=== PATIENT | female | born 1965 | race Two or more races ===

== ENCOUNTER 2016-12-30 16:00 | Outpatient (RCR) ==
--- NOTE | 2016-12-15 15:20 | RS.OPPTEV2 ---
Date of Note: 12/14/16 Visit #: 1 Date of Evaluation: 12/14/16 Payer Source: Insurance Treatment Diagnosis: Neck pain, radiating symptoms in UE's. History of Condition/Mechanism of Injury:: Patient reports neck tension for a few years, but onset of UE symptoms approximately three months ago. Prior Level of Function.....Patient was independent with: ADL's, Self Care, Work /Vocation, Caregiving, Ambulation/Mobility, Community Integration/Access Current Subjective/complaints:: Patient reports neck tension, headaches and symptoms into the UE's. States the left hand has tingling in all the fingers except the 5th digit, and tingling down the volar aspect of the left UE. States this is constant and she has similar symptoms in the right UE that are becoming more frequent. She Reports tension in the base of the head and between the neck and shoulders. Reports she has headaches frequently, sometimes they are on a daily basis. She reports no history of migraines. States when she has pain in her UE's it feels like an electrical shock down the arms. 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 States she also had a NCV study that revealed involvement in the cervical spine and wrists. Hx Home Medications: None listed Patient's Goals: Her goal is to get relief of neck and UE's symptoms. Pain Assessment - Pain Description Pain Location: neck Pain Description: Aching Pain Description: tension Current Pain Intensity: 2/10 Worst Pain Intensity: 2/10 Functional Outcome Measure Neck Disability Index: 22 - G Codes & Severity Modifier G Codes & Modifier: NA Source of G Code score: NA Observation - Observation Posture: Forward Head, Rounded Shoulders Handedness: Left - ROM Comments: Cervical AROM and bilateral UE AROM is WFL's. Reports tightness at end range cervical flexion and rotation bilaterally. - Strength Comments: UE strength is 5/5 throughout. - Special Tests VA Test: Negative Thoracic Outlet Test: Negative Left, Negative Right Banquet Supervisor Strength Left Hand Banquet Supervisor Strength: 65 lbs. Right Hand Banquet Supervisor Strength: 64 lbs. Dynamometer Testing Position: 2nd Position Palpation Comments:: Patient demonstrates minimal to moderate increased muscle tone along the upper traps, bilaterally. She denies any signficant tenderness with palpation to the upper traps, cervical paraspinals, or suboccipital region. Sensation - Sensation Comments: Patient reports sensation is intact to light touch and deep pressure, but she does have current tingling in the left UE along the volar aspect of the arm to the 1st-4th digits. - Heat/Cryotherapy Treatment: Hot Pack (X 10 mins to cervical spine prior to traction) - Traction Treatment Method: Mechanical, Intermittent, Cervical Patient Position: Supine Amount of Force Applied: 14-15 lbs. Hold Time: 30sec Rest Time: 5 sec Duration of treatment: 10 mins Interventions - Exercise/Activities/Manual Therapy Exercises/Activities: Patient given two tennis balls to use at home at the base of the head to help relieve headache pain. Also advised to use heat or cold to the base of the head and neck if she is sore later today following traction. Manual Therapy: NA HOME EXERCISE PROGRAM: stretching exercises of heel cord stretching (towel stretch, against the wall, and with hindfoot off a step. Towel curl exercise for Ant. Tib. - Charges Total Direct Minutes: 45 mins Total Treatment Time: 55 mins Procedures billed for this date of service:: Veronica Rosales , mechanical traction Assessment Assessment: Patient presents to therapy with a diagnosis of neck pain and tingling. She reports constant tingling into the left hand and volar aspect of the left UE. Symptoms at times into the right UE as well. Also reports frequent headaches and the feeling of tension in the neck. She exhibits muscle guarding along the upper traps bilaterally, which causes her to report tightness at end range cervical AROM. She demonstrates good potential to benefit from cervical traction to reduce her neck pain, headaches, and radiating symptoms, along with progressed postural stability exercises and postural awareness/auto body worker education to reduce the likelihood of recurrence. Patient Education: Education of diagnosis, Body/Joint mechanics, Home Exercise Program, Home Safety, Activity Modification, Education of Plan of Care Rehab Potential: Good Short Term Goals Goal #1: Left UE symptoms decreased to less than constant. Goal to be met by: 12/28/16 Goal #2: UE symptoms localized to the neck. Goal to be met by: 12/28/16 Goal #3: Headaches decreased to less than once a week. Goal to be met by: 12/28/16 Detention Goals Goal #1: Pt knows HEP and to continue ex's to maintain level of function at D/C. Goal to be met by: 01/23/17 Goal #2: Score on Neck Disability index improved to 6. Goal to be met by: 01/23/17 Goal #3: Pt to perform all ADL's and daily activities w/o neck pain or UE symptoms. Goal to be met by: 01/23/17 Goal #4: Pt to report no headaches. Goal to be met by: 01/23/17 Plan - Treatment to be Provided Procedures: Therapeutic Exercises, Therapeutic Activity, Manual Therapy, Patient Education Modalities: Ultrasound/Phonophoresis, Class IV Laser, Cryotherapy, Hot Packs, Mechanical Traction (cervical) - Treatment Plan Frequency: 2-3 X week Duration: 4 weeks ORDER # VISITS AND/OR THROUGH DATE: 01/23/17 - Treatment Code (1) Neck pain Comments: M54.2 (2) Cervical radiculopathy Comments: M54.12 (3) Frequent headaches Comments: R51
--- NOTE | 2016-12-16 16:56 | RS.OPPTDN ---
Subjective Date of Note: 12/16/16 Visit #: 2 Date of Evaluation: 12/14/16 Payer Source: Insurance Treatment Diagnosis: Neck pain, radiating symptoms in UE's. Current Subjective/complaints:: Patient denies any trouble tim initiation of cervical traction. Pain Assessment - Pain Description Pain Location: neck Pain Description: Aching Pain Description: tension Current Pain Intensity: 2/10 - Heat/Cryotherapy Treatment: Hot Pack (15 mins to the cervical in supine) - Traction Treatment Method: Mechanical, Intermittent, Cervical Patient Position: Supine Amount of Force Applied: 15-16 Hold Time: 25 Rest Time: 5 Duration of treatment: 15 Interventions - Exercise/Activities/Manual Therapy Exercises/Activities: Patient was given HEP concerning TKA and ice for use after surgery. Reviewed cervical HEP. Manual Therapy: NA HOME EXERCISE PROGRAM: stretching exercises of heel cord stretching (towel stretch, against the wall, and with hindfoot off a step. Towel curl exercise for Ant. Tib. - Charges Total Direct Minutes: 5 Total Treatment Time: 30 Procedures billed for this date of service:: hp, mechanical traction Assessment: Patient tim progression of traction well. Will benefit from further advancement. Patient Education: Education of diagnosis, Body/Joint mechanics, Home Exercise Program, Home Safety, Activity Modification, Education of Plan of Care Patient demonstrates compliance with HEP?: Yes Short Term Goals Goal #1: Left UE symptoms decreased to less than constant. Goal to be met by: 12/28/16 Goal #2: UE symptoms localized to the neck. Goal to be met by: 12/28/16 Goal #3: Headaches decreased to less than once a week. Goal to be met by: 12/28/16 Commercial Lines Insurance Agent Goals Goal #1: Pt knows HEP and to continue ex's to maintain level of function at D/C. Goal to be met by: 01/23/17 Goal #2: Score on Neck Disability index improved to 6. Goal to be met by: 01/23/17 Goal #3: Pt to perform all ADL's and daily activities w/o neck pain or UE symptoms. Goal to be met by: 01/23/17 Goal #4: Pt to report no headaches. Goal to be met by: 01/23/17 Plan PLAN OF CARE EXPIRES ON:: 01/23/17 ORDER # VISITS AND/OR THROUGH DATE: 01/23/17 PLAN: Progress Exercises
--- NOTE | 2016-12-19 13:59 | RS.OPPTDN ---
Subjective Date of Note: 12/19/16 Visit #: 3 Date of Evaluation: 12/14/16 Payer Source: Insurance Treatment Diagnosis: Neck pain, radiating symptoms in UE's. Current Subjective/complaints:: Patient states she did fine after treatment on Monday. States she has not noticed many times of having the electrical shock type pain in to her arm. States she will try to pay more attention to her symptoms. Pain Assessment - Pain Description Pain Location: neck Pain Description: Aching Pain Description: tension Current Pain Intensity: 2/10 - Heat/Cryotherapy Treatment: Hot Pack ( X 15 mins prior to traction) - Traction Treatment Method: Mechanical, Intermittent, Cervical Patient Position: Supine Amount of Force Applied: 17-18 lbs Hold Time: 30 seconds Rest Time: 5 seconds Duration of treatment: 20 minutes Interventions - Exercise/Activities/Manual Therapy Exercises/Activities: Patient instructed in scapular retraction and given red and green theraband. Patient demonstrated understanding of exercises. Total minutes of Exercise: 5 mins Manual Therapy: NA HOME EXERCISE PROGRAM: resisted scapular retraction with red and green theraband. - Charges Total Direct Minutes: 5 mins Total Treatment Time: 35 mins Procedures billed for this date of service:: HP, mechanical traction Assessment: Patient noticing less "electrical shock" pain in her arms. States she will pay closer attention to her symptoms. She tolerates the increased pull to 17-18 lbs. today. She will benefit from continued use of cervical traction in a therapeutic range and progressed postural exercises. Patient Education: Education of diagnosis, Body/Joint mechanics, Home Exercise Program, Education of Plan of Care Short Term Goals Goal #1: Left UE symptoms decreased to less than constant. Goal to be met by: 12/28/16 Goal #2: UE symptoms localized to the neck. Goal to be met by: 12/28/16 Goal #3: Headaches decreased to less than once a week. Goal to be met by: 12/28/16 Skilled Nursing Goals Goal #1: Pt knows HEP and to continue ex's to maintain level of function at D/C. Goal to be met by: 01/23/17 Goal #2: Score on Neck Disability index improved to 6. Goal to be met by: 01/23/17 Goal #3: Pt to perform all ADL's and daily activities w/o neck pain or UE symptoms. Goal to be met by: 01/23/17 Goal #4: Pt to report no headaches. Goal to be met by: 01/23/17 Plan PLAN OF CARE EXPIRES ON:: 01/23/17 ORDER # VISITS AND/OR THROUGH DATE: 01/23/17 PLAN: Continue Plan of Care
--- NOTE | 2016-12-21 13:27 | RS.OPPTDN ---
Subjective Date of Note: 12/21/16 Visit #: 4 Date of Evaluation: 12/14/16 Payer Source: Insurance Treatment Diagnosis: Neck pain, radiating symptoms in UE's. Current Subjective/complaints:: Patient reports left UE radicular symptoms have resolved, with exception of finger tips of first 2 fingers that feel numb or asleep, and right UE tingling is not constant. Pain Assessment - Pain Description Pain Location: neck Pain Description: Aching Pain Description: tension Current Pain Intensity: 2/10 - Heat/Cryotherapy Treatment: Hot Pack ([id number] to the cervical spine prior to TX. Patient in supine. ) - Traction Treatment Method: Mechanical, Intermittent, Cervical Patient Position: Supine Amount of Force Applied: 19-20# Hold Time: 35sec Rest Time: 5sec Duration of treatment: 20mins Interventions - Exercise/Activities/Manual Therapy Exercises/Activities: 3mins. Discussed HEP, body mechancis, and posture. Patient will progress to green theraband for scapular retraction. Total minutes of Exercise: 3mins Manual Therapy: NA HOME EXERCISE PROGRAM: resisted scapular retraction with red and green theraband. - Charges Total Direct Minutes: 3mins Total Treatment Time: 43mins Procedures billed for this date of service:: HP, [place] mechanical Assessment: Patient responding well to cervical traction. Patient Education: Education of diagnosis, Body/Joint mechanics, Home Exercise Program Patient demonstrates compliance with HEP?: Yes Short Term Goals Goal #1: Left UE symptoms decreased to less than constant. Goal to be met by: 12/28/16 Progress towards Goal:: Progressing Goal #2: UE symptoms localized to the neck. Goal to be met by: 12/28/16 Progress towards Goal:: Progressing Goal #3: Headaches decreased to less than once a week. Goal to be met by: 12/28/16 Membership Manager Goals Goal #1: Pt knows HEP and to continue ex's to maintain level of function at D/C. Goal to be met by: 01/23/17 Progress towards goal: Progressing Goal #2: Score on Neck Disability index improved to 6. Goal to be met by: 01/23/17 Goal #3: Pt to perform all ADL's and daily activities w/o neck pain or UE symptoms. Goal to be met by: 01/23/17 Goal #4: Pt to report no headaches. Goal to be met by: 01/23/17 Plan PLAN OF CARE EXPIRES ON:: 01/23/17 ORDER # VISITS AND/OR THROUGH DATE: 01/23/17 PLAN: Continue Plan of Care
--- NOTE | 2016-12-27 08:59 | RS.OPPTDN ---
Subjective Date of Note: 12/26/16 Visit #: 6 Date of Evaluation: 12/14/16 Payer Source: Insurance Treatment Diagnosis: Neck pain, radiating symptoms in UE's. Current Subjective/complaints:: Patient says she doesn't remember when she last had symptoms down the L arm. She says she will have tingling down the R "every now and then." Pain Assessment - Pain Description Pain Location: neck Pain Description: Aching Pain Description: tension Current Pain Intensity: 2/10 - Heat/Cryotherapy Treatment: Hot Pack (20 mins cervical in supine) - Traction Treatment Method: Mechanical, Intermittent, Cervical Patient Position: Supine Amount of Force Applied: 22-23 Hold Time: 25 Rest Time: 5 Duration of treatment: 20 Traction Treatment Comment: 1# min and 2 steps Interventions - Exercise/Activities/Manual Therapy Exercises/Activities: Reviewed HEP Manual Therapy: NA HOME EXERCISE PROGRAM: resisted scapular retraction with red and green theraband. - Charges Total Direct Minutes: 0 Total Treatment Time: 40 Procedures billed for this date of service:: hp, mechanical traction Assessment: Patient having less intense and less frequent radicular symptoms to each UE. She is pleased with how well her neck is doing and is more concerned with upcoming TKA Monday, January 02. Patient Education: Education of diagnosis, Body/Joint mechanics, Home Exercise Program, Home Safety, Activity Modification, Education of Plan of Care Patient demonstrates compliance with HEP?: Yes Short Term Goals Goal #1: Left UE symptoms decreased to less than constant. Goal to be met by: 12/28/16 Progress towards Goal:: Progressing Goal #2: UE symptoms localized to the neck. Goal to be met by: 12/28/16 Progress towards Goal:: Progressing Goal #3: Headaches decreased to less than once a week. Goal to be met by: 12/28/16 Progress towards Goal:: Progressing Comments:: Decreased tension TRONCOSO Sinter Feeder Goals Goal #1: Pt knows HEP and to continue ex's to maintain level of function at D/C. Goal to be met by: 01/23/17 Progress towards goal: Progressing Goal #2: Score on Neck Disability index improved to 6. Goal to be met by: 01/23/17 Goal #3: Pt to perform all ADL's and daily activities w/o neck pain or UE symptoms. Goal to be met by: 01/23/17 Goal #4: Pt to report no headaches. Goal to be met by: 01/23/17 Plan PLAN OF CARE EXPIRES ON:: 01/23/17 ORDER # VISITS AND/OR THROUGH DATE: 01/23/17 PLAN: Continue Plan of Care
--- NOTE | 2016-12-28 16:49 | RS.OPPTDN ---
Subjective Date of Note: 12/28/16 Visit #: 7 Date of Evaluation: 12/14/16 Payer Source: Insurance Treatment Diagnosis: Neck pain, radiating symptoms in UE's. Current Subjective/complaints:: Patient says she continues to have only very little tingling to the L 1st and 2nd digits. This is significantly less frequent as well. Pain Assessment - Pain Description Pain Location: neck Pain Description: Aching Pain Description: tension Current Pain Intensity: 2/10 - Heat/Cryotherapy Treatment: Hot Pack (15 mins to the cervical in supine) - Traction Treatment Method: Mechanical, Intermittent, Cervical Patient Position: Supine Amount of Force Applied: 24 Hold Time: 30 Rest Time: 5 Duration of treatment: 20 Traction Treatment Comment: 2 steps Interventions - Exercise/Activities/Manual Therapy Exercises/Activities: Reviewed HEP Manual Therapy: NA HOME EXERCISE PROGRAM: resisted scapular retraction with red and green theraband. - Charges Total Direct Minutes: 0 Total Treatment Time: 35 Procedures billed for this date of service:: hp, traction (mechanical) Assessment: Significant improvement with frequency and intensity of UE radicular symptoms. Patient Education: Education of diagnosis, Body/Joint mechanics, Home Exercise Program, Home Safety, Activity Modification, Education of Plan of Care Patient demonstrates compliance with HEP?: Yes Short Term Goals Goal #1: Left UE symptoms decreased to less than constant. Goal to be met by: 12/28/16 Progress towards Goal:: Progressing Goal #2: UE symptoms localized to the neck. Goal to be met by: 12/28/16 Progress towards Goal:: Progressing Goal #3: Headaches decreased to less than once a week. Goal to be met by: 12/28/16 Progress towards Goal:: Progressing Shelter Goals Goal #1: Pt knows HEP and to continue ex's to maintain level of function at D/C. Goal to be met by: 01/23/17 Progress towards goal: Progressing Goal #2: Score on Neck Disability index improved to 6. Goal to be met by: 01/23/17 Goal #3: Pt to perform all ADL's and daily activities w/o neck pain or UE symptoms. Goal to be met by: 01/23/17 Goal #4: Pt to report no headaches. Goal to be met by: 01/23/17 Plan PLAN OF CARE EXPIRES ON:: 01/23/17 ORDER # VISITS AND/OR THROUGH DATE: 01/23/17 PLAN: Continue Plan of Care
--- NOTE | 2017-01-02 09:09 | RS.OPPTDN ---
Subjective Date of Note: 12/30/16 Visit #: 8 Date of Evaluation: 12/14/16 Payer Source: Insurance Treatment Diagnosis: Neck pain, radiating symptoms in UE's. Current Subjective/complaints:: Patient says she is very pleased with how well her neck and hands have improved. She says she is anxious about her TKR on Monday. She says if her symptoms from her neck stay like it is, she will be satisfied. Pain Assessment - Pain Description Pain Location: neck Pain Description: Aching Pain Description: tension Current Pain Intensity: 0 - Heat/Cryotherapy Treatment: Hot Pack (20 mins cervical supine) - Traction Treatment Method: Mechanical, Intermittent, Cervical Patient Position: Supine Amount of Force Applied: 25 Hold Time: 30 Rest Time: 5 Duration of treatment: 20 Traction Treatment Comment: 2 steps and 1# min Interventions - Exercise/Activities/Manual Therapy Exercises/Activities: Reviewed HEP Manual Therapy: NA HOME EXERCISE PROGRAM: resisted scapular retraction with red and green theraband. - Charges Total Direct Minutes: 5 Total Treatment Time: 45 Procedures billed for this date of service:: hp, mechanical traction Assessment: Patient has progressed well with reduced neck pain, TRONCOSO's frequency, and less radiating symptoms to both hands. This will be her final visit as she is having surgery Monday. Patient Education: Education of diagnosis, Body/Joint mechanics, Home Exercise Program, Home Safety, Activity Modification, Education of Plan of Care Patient demonstrates compliance with HEP?: Yes Short Term Goals Goal #1: Left UE symptoms decreased to less than constant. Goal to be met by: 12/28/16 Progress towards Goal:: Met Goal #2: UE symptoms localized to the neck. Goal to be met by: 12/28/16 Progress towards Goal:: Partially Met Goal #3: Headaches decreased to less than once a week. Goal to be met by: 12/28/16 Progress towards Goal:: Met [facility] Goals Goal #1: Pt knows HEP and to continue ex's to maintain level of function at D/C. Goal to be met by: 01/23/17 Progress towards goal: Met Goal #2: Score on Neck Disability index improved to 6. Goal to be met by: 01/23/17 Progress towards goal: Progressing Goal #3: Pt to perform all ADL's and daily activities w/o neck pain or UE symptoms. Goal to be met by: 01/23/17 Progress towards goal: Progressing Goal #4: Pt to report no headaches. Goal to be met by: 01/23/17 Progress towards goal: Progressing Plan PLAN OF CARE EXPIRES ON:: 01/23/17 ORDER # VISITS AND/OR THROUGH DATE: 01/23/17 PLAN: Plan for Discharge
--- NOTE | 2017-01-02 09:14 | RS.OPPTDN ---
Subjective Date of Note: 12/23/16 Visit #: 5 Date of Evaluation: 12/14/16 Payer Source: Insurance Treatment Diagnosis: Neck pain, radiating symptoms in UE's. Current Subjective/complaints:: Patient says her neck and tingling is getting better with therapy. She says tingling no longer "travels" down the L UE to fingers, but is only present at 1st and 2nd digits. Pain Assessment - Pain Description Pain Location: neck Pain Description: Aching Pain Description: tension Current Pain Intensity: 0 - Heat/Cryotherapy Treatment: Hot Pack (20 mins cervical supine) - Traction Treatment Method: Mechanical, Intermittent, Cervical Patient Position: Supine Amount of Force Applied: 19 Hold Time: 25 Rest Time: 5 Duration of treatment: 20 Traction Treatment Comment: 2 steps 1# relax Interventions - Exercise/Activities/Manual Therapy Exercises/Activities: 3mins. Discussed HEP, body mechancis, and posture. Patient will progress to green theraband for scapular retraction. Manual Therapy: NA HOME EXERCISE PROGRAM: resisted scapular retraction with red and green theraband. - Charges Total Direct Minutes: 3 Total Treatment Time: 43 Procedures billed for this date of service:: hp, mechanical traction Assessment: Patient tim increased poundage and admitting improved symptoms afterwards. Patient Education: Education of diagnosis, Body/Joint mechanics, Home Exercise Program, Home Safety, Activity Modification, Education of Plan of Care Patient demonstrates compliance with HEP?: Yes Short Term Goals Goal #1: Left UE symptoms decreased to less than constant. Goal to be met by: 12/28/16 Progress towards Goal:: Progressing Goal #2: UE symptoms localized to the neck. Goal to be met by: 12/28/16 Progress towards Goal:: Progressing Goal #3: Headaches decreased to less than once a week. Goal to be met by: 12/28/16 Progress towards Goal:: Progressing Shelter Goals Goal #1: Pt knows HEP and to continue ex's to maintain level of function at D/C. Goal to be met by: 01/23/17 Progress towards goal: Progressing Goal #2: Score on Neck Disability index improved to 6. Goal to be met by: 01/23/17 Goal #3: Pt to perform all ADL's and daily activities w/o neck pain or UE symptoms. Goal to be met by: 01/23/17 Progress towards goal: Progressing Goal #4: Pt to report no headaches. Goal to be met by: 01/23/17 Plan PLAN OF CARE EXPIRES ON:: 01/23/17 ORDER # VISITS AND/OR THROUGH DATE: 01/23/17 PLAN: Continue Plan of Care
== END 2017-01-06 ==
PROVIDERS: ATTEND Clinical Nurse Specialist Adult Health
DX: M54.2 Cervicalgia (principal); G89.29 Other chronic pain; R20.2 Paresthesia of skin

== ENCOUNTER → 2017-02-06 | Outpatient (RCR) ==
--- NOTE | 2017-01-20 16:09 | RS.OPPTEV2 ---
Date of Note: 01/20/17 Visit #: 1 Date of Evaluation: 01/20/17 Payer Source: Insurance Surgery Performed?: Yes Procedure Performed: Right TKA Date of Procedure: 01/02/17 Treatment Diagnosis: Right knee pain, right knee effusion, stiffness, s/p TKA History of Condition/Mechanism of Injury:: Patient reports progressive knee pain from arthritis led to TKA. Prior Level of Function.....Patient was independent with: ADL's, Self Care, Work /Vocation, Caregiving, Ambulation/Mobility, Community Integration/Access Functional Limitations: Sleep, Self Care, ADL's, Reaching, Pushing, Pulling, Lifting, Carrying, Sitting, Standing, Bending, Squatting, Ambulation, Community Access/Integration Current Subjective/complaints:: Patient reports right knee pain. States she is taking her pain medication about every 6 hours. She took pain medication this morning. States she started using a cane in the last few days and she feels shaky and wobbly with it. She received Home Health PT for about 2 weeks. Reports she is worried about how much pain she is going to have with therapy. She is consistently icing and elevating the right LE. States the right knee feels tight and swollen. She goes back for a follow up appointment on February 14. She does not know at this time if she will be going back to school when it starts this fall. 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 Treatment Side (optional): Right Medical History Medical History: Hypertension, Arthritis (knees) Smoking Status: Never smoker Hx Home Medications: pain medication q 4-6 hours Patient's Goals: Her goal is to regain functional AROM of the right knee and return to her previous level of function. Pain Assessment - Pain Description Pain Location: Right knee Pain Description: tight and swollen Current Pain Intensity: 3/10 Worst Pain Intensity: 6/10 Functional Outcome Measure LE Functional Scale: 24 (24/80=70% impairment) - G Codes & Severity Modifier G Codes & Modifier: NA Source of G Code score: NA Observation - Observation Inspection: Right knee presents with well healing, clean incision. Incision approximated with Dermabond. Girth Measurement Lower: Right knee: 58 cm superior incision, 46.5 cm inferior incision, 29 cm malleioli Gait - Gait Pattern Gait Comments: Patient ambulates with a WBQC in the left hand into the department. She demonstrates slight unsteadiness and reports feeling wobbly while ambulating. Demonstrates good heel strike, with limited knee and hip flexion during swing phase. - Right Knee ROM Right Knee Extension: -8 degrees from full extension Right Knee Flexion: 73 (degrees AROM) Knee ROM Limitations: Soft Tissue Tightness, Pain Comments: knee extension improved to -6 degrees from full extension after exercises. - Right Knee Strength Right Knee Extension: 4- Good- Right Knee Flexion: 4 Good Sensation - Sensation Right Lower Extremity: Intact/Normal Left Lower Extremity: Intact/Normal Interventions - Exercise/Activities/Manual Therapy Exercises/Activities: Reviewed exercises for HEP. Advised to focus the most on knee flexion and extension. Instructed in AP's, quad sets, SAQ's, heel slides, SLR's, standing HS curls. Also advised to continue to ice and elevate the leg to assist in decreasing swelling. Manual Therapy: NA HOME EXERCISE PROGRAM: TKA protocol- advised to focus on extension and flexion. - Charges Total Direct Minutes: 50 mins Total Treatment Time: 50 mins Procedures billed for this date of service:: GURJIT Cerda Assessment Assessment: Patient presents 2 1/2 weeks s/p right TKA. She presents with limited AROM and strength of the right knee. All ambulation and ADL's are difficult at this time due to swelling, pain, and limited ROM. She demonstrates good potential to regain functional AROM with therapeutic exercises and modalities as indicated. Patient Education: Education of diagnosis, Body/Joint mechanics, Home Exercise Program, Home Safety, Activity Modification, Education of Plan of Care Rehab Potential: Good Short Term Goals Goal #1: Right knee to demonstrate full extension. Goal to be met by: 01/30/17 Goal #2: Right knee active flexion to 95 degrees. Goal to be met by: 02/03/17 Goal #3: Right quad control improved to good. Goal to be met by: 02/03/17 Urban Designer Goals Goal #1: Pt knows HEP and to continue ex's to maintain level of function at D/C. Goal to be met by: 03/06/17 Goal #2: Score on LE functional scale improved to 60/80. Goal to be met by: 03/06/17 Goal #3: Pt to amb. w/o asst device, community distances and min. gait deviation. Goal to be met by: 03/06/17 Goal #4: Right knee AROM WFL's to perform all ADL's without difficulty. Goal to be met by: 03/06/17 Plan - Treatment to be Provided Procedures: Therapeutic Exercises, Therapeutic Activity, Manual Therapy, Patient Education Modalities: Electrical Stimulation, Cryotherapy, Hot Packs - Treatment Plan Frequency: 3 X week Duration: 6 weeks ORDER # VISITS AND/OR THROUGH DATE: 03/06/17 - Treatment Code (1) Knee pain Qualifiers: Chronicity: acute Laterality: right Qualified Description: Acute pain of right knee Qualifier Code(s): (M25.561) Pain in right knee (2) Knee joint effusion Qualifiers: Laterality: right Qualified Description: Effusion of right knee Qualifier Code(s): (M25.461) Effusion, right knee (3) Aftercare following joint replacement surgery Qualifiers: Joint replacement surgery site: knee Laterality: right Qualified Description: Aftercare following right knee joint replacement surgery Qualifier Code(s): (Z47.1) Aftercare following joint replacement surgery, ( Z96.651) Presence of right artificial knee joint
--- NOTE | 2017-01-23 14:36 | RS.OPPTDN ---
Subjective Date of Note: 01/23/17 Visit #: 2 Date of Evaluation: 01/20/17 Payer Source: Insurance Treatment Diagnosis: Right knee pain, right knee effusion, stiffness, s/p TKA Current Subjective/complaints:: Reports the R knee hurts more medially today. Pain Assessment - Pain Description Pain Location: Right knee Pain Description: Dull, Aching Pain Description: tight and swollen Current Pain Intensity: 3 - 4 /10 - Treatment Modality: Electrical Stim Unattended Parameters/Method Applied: 20 mins. high volt to R knee,channel 1 @ 160 pv - 195 pv. Patient Position: Supine - Heat/Cryotherapy Treatment: Cryotherapy (concurrent with e-stim) Interventions - Exercise/Activities/Manual Therapy Exercises/Activities: 30 mins. total of HEP review and return demo. of ankle pumps,QS,SAQ,SLR with assist,heelslides with assist.AROM is 80 - 83 degrees flexion,extension is -8 with SAQ's,-5 with quad sets. Total minutes of Exercise: 30 Manual Therapy: NA Total minutes of Manual Therapy: 0 HOME EXERCISE PROGRAM: TKA protocol- advised to focus on extension and flexion. - Charges Total Direct Minutes: 30 Total Treatment Time: 50 Procedures billed for this date of service:: cp,e-stim,,ex Assessment: Patient reports increased medial knee pain with doing heelslides, but she has soft end feel present with passive stretches.She has moderate edema and warmth present,limiting her flexion. Patient Education: Education of diagnosis, Body/Joint mechanics, Home Exercise Program, Home Safety, Activity Modification, Education of Plan of Care Patient demonstrates compliance with HEP?: Yes Short Term Goals Goal #1: Right knee to demonstrate full extension. Goal to be met by: 01/30/17 Progress towards Goal:: Progressing Goal #2: Right knee active flexion to 95 degrees. Goal to be met by: 02/03/17 Progress towards Goal:: Progressing Goal #3: Right quad control improved to good. Goal to be met by: 02/03/17 Car Customizer Goals Goal #1: Pt knows HEP and to continue ex's to maintain level of function at D/C. Goal to be met by: 03/06/17 Progress towards goal: Progressing Goal #2: Score on LE functional scale improved to 60/80. Goal to be met by: 03/06/17 Goal #3: Pt to amb. w/o asst device, community distances and min. gait deviation. Goal to be met by: 03/06/17 Goal #4: Right knee AROM WFL's to perform all ADL's without difficulty. Goal to be met by: 03/06/17 Plan PLAN OF CARE EXPIRES ON:: 03/06/17 ORDER # VISITS AND/OR THROUGH DATE: 03/06/17 PLAN: Continue Plan of Care
--- NOTE | 2017-01-25 14:38 | RS.OPPTDN ---
Subjective Date of Note: 01/25/17 Visit #: 3 Date of Evaluation: 01/20/17 Payer Source: Insurance Treatment Diagnosis: Right knee pain, right knee effusion, stiffness, s/p TKA Current Subjective/complaints:: Patient reports continued swelling and discomfort at the medial right knee joint. Pain Assessment - Pain Description Pain Location: Right knee Pain Description: Dull, Aching Pain Description: tight and swollen Current Pain Intensity: 3 - 4 /10 - Treatment Modality: Electrical Stim Unattended Parameters/Method Applied: [id number] HVGC to 210p.v. with 4 large pads cross current to the right knee joint with CP prior to EX. Patient Position: Supine - Heat/Cryotherapy Treatment: Cryotherapy ([id number] with Estim prior to EX. ) Interventions - Exercise/Activities/Manual Therapy Exercises/Activities: 30mins. Ankle pumps, QS, Ham sets. SLR with assist. Red theraband for resistive ankle df. Heelslides with assist. Isometric hip add with ball. In sitting, isometric knee flexion and exension. LAQ. Passive right knee flexion, including contract relax technique. Passive right knee flexion to 88 degrees. Total minutes of Exercise: 30mins Manual Therapy: NA HOME EXERCISE PROGRAM: TKA protocol- advised to focus on extension and flexion. Quad sets, Ham sets, SLR, sitting LAQ and active flexion. - Charges Total Direct Minutes: 30mins Total Treatment Time: 50mins Procedures billed for this date of service:: CP, Estim unattended, EX2 Assessment: Patient progressing with ROM and with ability to perform EX. Patient Education: Education of diagnosis, Body/Joint mechanics, Home Exercise Program Patient demonstrates compliance with HEP?: Yes Short Term Goals Goal #1: Right knee to demonstrate full extension. Goal to be met by: 01/30/17 Progress towards Goal:: Progressing Goal #2: Right knee active flexion to 95 degrees. Goal to be met by: 02/03/17 Progress towards Goal:: Progressing Goal #3: Right quad control improved to good. Goal to be met by: 02/03/17 Progress towards Goal:: Progressing Quality Control Manager Goals Goal #1: Pt knows HEP and to continue ex's to maintain level of function at D/C. Goal to be met by: 03/06/17 Progress towards goal: Progressing Goal #2: Score on LE functional scale improved to 60/80. Goal to be met by: 03/06/17 Goal #3: Pt to amb. w/o asst device, community distances and min. gait deviation. Goal to be met by: 03/06/17 Progress towards goal: Progressing Goal #4: Right knee AROM WFL's to perform all ADL's without difficulty. Goal to be met by: 03/06/17 Plan PLAN OF CARE EXPIRES ON:: 03/06/17 ORDER # VISITS AND/OR THROUGH DATE: 03/06/17 PLAN: Continue Plan of Care (Continue modalities and progress exercises to increase strength and ROM.)
--- NOTE | 2017-01-27 15:16 | RS.OPPTDN ---
Subjective Date of Note: 01/27/17 Visit #: 4 Date of Evaluation: 01/20/17 Payer Source: Insurance Treatment Diagnosis: Right knee pain, right knee effusion, stiffness, s/p TKA Current Subjective/complaints:: Patient reports continued swelling and stiffness in the right knee that limits motion and walking. Pain Assessment - Pain Description Pain Location: Right knee Pain Description: Dull, Aching Pain Description: tight and swollen Current Pain Intensity: 3 - 4 /10 - Treatment Modality: Electrical Stim Unattended Parameters/Method Applied: [id number] HVGC to 195p.v. with 4 pads cross current with CP to the right knee prior to EX. Patient Position: Supine - Heat/Cryotherapy Treatment: Cryotherapy ([id number] with Estim ) Interventions - Exercise/Activities/Manual Therapy Exercises/Activities: 30mins. Passive stretching into flexion and extension. Ankle pumps, QS, Ham sets. SLR with assist. Red theraband for resistive ankle df. Heelslides with assist. Isometric hip add with ball. In sitting, isometric knee flexion and exension. LAQ. Passive right knee flexion, including contract relax technique. Passive right knee flexion remains approx 88 degrees. Total minutes of Exercise: 30mins Manual Therapy: NA HOME EXERCISE PROGRAM: TKA protocol- advised to focus on extension and flexion. Quad sets, Ham sets, SLR, sitting LAQ and active flexion. - Charges Total Direct Minutes: 30mins Total Treatment Time: 50mins Procedures billed for this date of service:: CP, Estim unattended, EX2 Assessment: Patient with increased joint swelling today which limits progress with ROM. She is motivated to work on HEP and progress. Patient Education: Body/Joint mechanics, Home Exercise Program, Home Safety Patient demonstrates compliance with HEP?: Yes Short Term Goals Goal #1: Right knee to demonstrate full extension. Goal to be met by: 01/30/17 Progress towards Goal:: Progressing Goal #2: Right knee active flexion to 95 degrees. Goal to be met by: 02/03/17 Progress towards Goal:: No Change Goal #3: Right quad control improved to good. Goal to be met by: 02/03/17 Progress towards Goal:: Progressing Epoxy Specialist Goals Goal #1: Pt knows HEP and to continue ex's to maintain level of function at D/C. Goal to be met by: 03/06/17 Progress towards goal: Progressing Goal #2: Score on LE functional scale improved to 60/80. Goal to be met by: 03/06/17 Goal #3: Pt to amb. w/o asst device, community distances and min. gait deviation. Goal to be met by: 03/06/17 Progress towards goal: Progressing Goal #4: Right knee AROM WFL's to perform all ADL's without difficulty. Goal to be met by: 03/06/17 Plan PLAN OF CARE EXPIRES ON:: 03/06/17 ORDER # VISITS AND/OR THROUGH DATE: 03/06/17 PLAN: Continue Plan of Care
--- NOTE | 2017-01-30 14:39 | RS.OPPTDN ---
Subjective Date of Note: 01/30/17 Visit #: 5 Date of Evaluation: 01/20/17 Payer Source: Insurance Treatment Diagnosis: Right knee pain, right knee effusion, stiffness, s/p TKA Current Subjective/complaints:: Patient reports the R knee appears more swollen today.It does present with moderate edema along the medial aspect. Pain Assessment - Pain Description Pain Location: Right knee Pain Description: Dull, Aching Pain Description: tight and swollen Current Pain Intensity: 3 - 4 /10 - Treatment Modality: Electrical Stim Unattended Parameters/Method Applied: 20 mins. high volt to r knee,channel 1 above the knee 2 200 pv,channel 2 below the knee @ 240 pv. Patient Position: Supine - Heat/Cryotherapy Treatment: Cryotherapy (concurrent with e-stim) Interventions - Exercise/Activities/Manual Therapy Exercises/Activities: 35 mins. total, TKA protocol of ankle pumps,SAQ's,SLR's, assisted heelslides, grade II AP mobs,isometric knee extension /flexion.Flexion assessed in supine ,90/90 position ,and in sitting .Flexion initially @ 79 to 80 degrees,83 to 84 degrees after multiple reps. of passive stretches. Total minutes of Exercise: 35 Manual Therapy: NA Total minutes of Manual Therapy: 0 HOME EXERCISE PROGRAM: TKA protocol- advised to focus on extension and flexion. Quad sets, Ham sets, SLR, sitting LAQ and active flexion. - Charges Total Direct Minutes: 35 Total Treatment Time: 55 Procedures billed for this date of service:: cp,e-stim, ex 2 Assessment: Patient has improved knee extension ,but her flexion remains the same the past couple of sesions.Recommended for her to do flexion in several sets throughout the day,as tolerated.Her end feel is soft,but her pain is elevated significantly with attempting flexion actively or passively. Patient Education: Education of diagnosis, Body/Joint mechanics, Home Exercise Program, Home Safety, Activity Modification, Education of Plan of Care Patient demonstrates compliance with HEP?: Yes (encouraged to focus on flexion exercises) Short Term Goals Goal #1: Right knee to demonstrate full extension. Goal to be met by: 01/30/17 Progress towards Goal:: Progressing Goal #2: Right knee active flexion to 95 degrees. Goal to be met by: 02/03/17 Progress towards Goal:: No Change Goal #3: Right quad control improved to good. Goal to be met by: 02/03/17 Progress towards Goal:: Progressing Intermediate Goals Goal #1: Pt knows HEP and to continue ex's to maintain level of function at D/C. Goal to be met by: 03/06/17 Progress towards goal: Progressing Goal #2: Score on LE functional scale improved to 60/80. Goal to be met by: 03/06/17 Goal #3: Pt to amb. w/o asst device, community distances and min. gait deviation. Goal to be met by: 03/06/17 Progress towards goal: Progressing Goal #4: Right knee AROM WFL's to perform all ADL's without difficulty. Goal to be met by: 03/06/17 Progress towards goal: No Change Plan PLAN OF CARE EXPIRES ON:: 03/06/17 ORDER # VISITS AND/OR THROUGH DATE: 03/06/17 PLAN: Progress Exercises
--- NOTE | 2017-02-01 14:33 | RS.OPPTDN ---
Subjective Date of Note: 02/01/17 Visit #: 6 Date of Evaluation: 01/20/17 Payer Source: Insurance Treatment Diagnosis: Right knee pain, right knee effusion, stiffness, s/p TKA Current Subjective/complaints:: Patient still frustrated about her limited knee flexion.She ia asking about written copies for HEP ,they are printed and given to her today.She continues to have medial pain in the knee. Pain Assessment - Pain Description Pain Location: Right knee Pain Description: Dull, Aching Pain Description: tight and swollen Current Pain Intensity: 5/10 - Heat/Cryotherapy Treatment: Hot Pack (20 mins. to quads prior to manual therapy and exercises) Interventions - Exercise/Activities/Manual Therapy Exercises/Activities: 15 mins. total, TKA protocol of ankle pumps,SAQ's,SLR's, assisted heelslides, grade II AP mobs,isometric knee extension /flexion.Flexion assessed in supine ,90/90 position ,and in sitting .Flexion initially @ 71 , then progressed in sitting to 80 degrees,but elevated pain. Total minutes of Exercise: 15 Manual Therapy: 15 mins. DTM to quads. Total minutes of Manual Therapy: 15 HOME EXERCISE PROGRAM: TKA protocol- advised to focus on extension and flexion. Quad sets, Ham sets, SLR, sitting LAQ and active flexion. - Charges Total Direct Minutes: 30 mins. Total Treatment Time: 50 Procedures billed for this date of service:: hp,manual,ex 1 Assessment: Patient has good strength in quads and hamstrings.but no change in her knee flexion.She continues to have elevated pain medially.VOICEMAIL LEFT at 's office regarding patient 's status. Patient Education: Education of diagnosis, Body/Joint mechanics, Home Exercise Program, Home Safety, Activity Modification, Education of Plan of Care Patient demonstrates compliance with HEP?: Yes Short Term Goals Goal #1: Right knee to demonstrate full extension. Goal to be met by: 01/30/17 Progress towards Goal:: Progressing Goal #2: Right knee active flexion to 95 degrees. Goal to be met by: 02/03/17 Progress towards Goal:: No Change Goal #3: Right quad control improved to good. Goal to be met by: 02/03/17 Progress towards Goal:: Progressing Crew Leader/Control Room Operator Goals Goal #1: Pt knows HEP and to continue ex's to maintain level of function at D/C. Goal to be met by: 03/06/17 Progress towards goal: Progressing Goal #2: Score on LE functional scale improved to 60/80. Goal to be met by: 03/06/17 Goal #3: Pt to amb. w/o asst device, community distances and min. gait deviation. Goal to be met by: 03/06/17 Progress towards goal: No Change Goal #4: Right knee AROM WFL's to perform all ADL's without difficulty. Goal to be met by: 03/06/17 Progress towards goal: No Change Plan PLAN OF CARE EXPIRES ON:: 03/06/17 ORDER # VISITS AND/OR THROUGH DATE: 03/06/17 PLAN: Continue Plan of Care
--- NOTE | 2017-02-03 15:35 | RS.OPPTDN ---
Subjective Date of Note: 02/03/17 Visit #: 7 Date of Evaluation: 01/20/17 Payer Source: Insurance Treatment Diagnosis: Right knee pain, right knee effusion, stiffness, s/p TKA Current Subjective/complaints:: Patient says she is frustrated that her knee is not bending more. She says she is performing HEP several times daily and using ice/walking. Jami continues to say her pain is isolated to just distal to the R medial joint line. Pain Assessment - Pain Description Pain Location: Right knee Pain Description: Dull, Aching Pain Description: tight and swollen Current Pain Intensity: 5/10 - Treatment Modality: Electrical Stim Unattended Parameters/Method Applied: hivolt 4 large pads meredith crossed @ 200-210 pk volts x 12 mins. Originally set for 20, but patient needed to stop due to stomach pains. Patient Position: Supine - Heat/Cryotherapy Treatment: Cryotherapy Interventions - Exercise/Activities/Manual Therapy Exercises/Activities: 26 mins. total, TKA protocol of ankle pumps,SAQ's,SLR's, assisted heelslides, grade II AP mobs,isometric knee extension /flexion. Knee extension stretching over bolster. Patellar mobs. Flexion assessed in supine , 90/90 position ,and in sitting . Contract relax multiple reps. Assisted stretching and LAQ multiple reps for flexion. Manual Therapy: na HOME EXERCISE PROGRAM: TKA protocol- advised to focus on extension and flexion. Quad sets, Ham sets, SLR, sitting LAQ and active flexion. - Charges Total Direct Minutes: 26 Total Treatment Time: 38 Procedures billed for this date of service:: cp, estim (un), ex2 Assessment: Patient continues with pain that elevates severely to the R knee just distal to the medial joint line. Sensation intact to the lateral aspect. Moderate swelling noted throughout the R knee. Patient having a lot of anxiety about status of her knee right now causing stomach issues. Knee flexion to 84 degrees today after multiple reps of stretching and joint mobs in sitting. Patient Education: Education of diagnosis, Body/Joint mechanics, Home Exercise Program, Home Safety, Activity Modification, Education of Plan of Care Patient demonstrates compliance with HEP?: Yes Short Term Goals Goal #1: Right knee to demonstrate full extension. Goal to be met by: 01/30/17 Progress towards Goal:: Progressing Goal #2: Right knee active flexion to 95 degrees. Goal to be met by: 02/03/17 Progress towards Goal:: Progressing Comments:: very slowly and with aggressive stretching/joint mobs Goal #3: Right quad control improved to good. Goal to be met by: 02/03/17 Progress towards Goal:: Progressing Jail Goals Goal #1: Pt knows HEP and to continue ex's to maintain level of function at D/C. Goal to be met by: 03/06/17 Progress towards goal: Progressing Goal #2: Score on LE functional scale improved to 60/80. Goal to be met by: 03/06/17 Goal #3: Pt to amb. w/o asst device, community distances and min. gait deviation. Goal to be met by: 03/06/17 Progress towards goal: No Change Goal #4: Right knee AROM WFL's to perform all ADL's without difficulty. Goal to be met by: 03/06/17 Progress towards goal: No Change Plan PLAN OF CARE EXPIRES ON:: 03/06/17 ORDER # VISITS AND/OR THROUGH DATE: 03/06/17 PLAN: Progress Exercises
--- NOTE | 2017-02-06 14:38 | RS.OPPTDN ---
Subjective Date of Note: 02/06/17 Visit #: 7 Date of Evaluation: 01/20/17 Payer Source: Insurance Treatment Diagnosis: Right knee pain, right knee effusion, stiffness, s/p TKA Current Subjective/complaints:: Patient reports she is discouraged with right medial knee pain that is limiting her ROM. Pain Assessment - Pain Description Pain Location: Right knee Pain Description: Dull, Aching Pain Description: tight and swollen Current Pain Intensity: 5/10 Other Comments regarding Pain:: Sharp pain at medial knee joint with end range flexion. - Treatment Modality: Class 4 Laser Parameters/Method Applied: [id number](no charge) Trial Laser today one cycle of deep pain reduction around right knee joint with focus on medial joint. Then one cycle of edema and congestion through distal quads and popliteal surface of right knee joint. Patient in supine and sitting. Interventions - Exercise/Activities/Manual Therapy Exercises/Activities: 40mins. PROM of the right knee joint. SLR, Quad sets, SAQ. PROM during trial Laser to increase right knee flexion. In sitting, green theraband for resistive knee flexion and extension. Manually resisted isometrics for knee flexion and extension. Contract relax with PROM. Assisted patient to stationary bike for half revolutions and progresses to full revolutions. Total minutes of Exercise: 40mins Manual Therapy: na HOME EXERCISE PROGRAM: TKA protocol- advised to focus on extension and flexion. Quad sets, Ham sets, SLR, sitting LAQ and active flexion. - Objective Findings Observations,measurements,etc.: Passive right knee flexion to 92 degrees in sitting with aggressive stretching. - Charges Total Direct Minutes: 50mins (40mins EX) Total Treatment Time: 50mins Procedures billed for this date of service:: EX3 Assessment: Patient demos progress with ROM today and she is able to progress to full revolutions on bike. Patient Education: Home Exercise Program Patient demonstrates compliance with HEP?: Yes Short Term Goals Goal #1: Right knee to demonstrate full extension. Goal to be met by: 01/30/17 Progress towards Goal:: Progressing Goal #2: Right knee active flexion to 95 degrees. Goal to be met by: 02/03/17 Progress towards Goal:: Progressing Goal #3: Right quad control improved to good. Goal to be met by: 02/03/17 Progress towards Goal:: Progressing Shelter Goals Goal #1: Pt knows HEP and to continue ex's to maintain level of function at D/C. Goal to be met by: 03/06/17 Progress towards goal: Progressing Goal #2: Score on LE functional scale improved to 60/80. Goal to be met by: 03/06/17 Goal #3: Pt to amb. w/o asst device, community distances and min. gait deviation. Goal to be met by: 03/06/17 Progress towards goal: No Change Goal #4: Right knee AROM WFL's to perform all ADL's without difficulty. Goal to be met by: 03/06/17 Progress towards goal: No Change Plan PLAN OF CARE EXPIRES ON:: 03/06/17 ORDER # VISITS AND/OR THROUGH DATE: 03/06/17 PLAN: Continue Plan of Care
== END ==
PROVIDERS: ATTEND Orthopaedic Surgery
DX: M17.11 Unilateral primary osteoarthritis, right knee (principal)

== ENCOUNTER → 2017-03-09 | Outpatient (RCR) ==
--- NOTE | 2017-02-08 15:45 | RS.OPPTDN ---
Subjective Date of Note: 02/08/17 Visit #: 8 Date of Evaluation: 01/20/17 Payer Source: Insurance Treatment Diagnosis: Right knee pain, right knee effusion, stiffness, s/p TKA Current Subjective/complaints:: Patient reports continued pain and stiffness in the right knee. Pain Assessment - Pain Description Pain Location: Right knee Pain Description: tight and swollen Current Pain Intensity: 5/10 - Treatment Parameters/Method Applied: Trial Laser one cycle of Deep Pain Reduction and one cycle of Edema and Congestion to the right knee and distal thigh. Interventions - Exercise/Activities/Manual Therapy Exercises/Activities: 42mins. PROM of the right knee joint. SLR, Quad sets, ham sets, SAQ with 4#. Green theraband for resistive ankle df and ham curl. PROM in sitting. In sitting, green theraband for resistive knee flexion and extension. Manually resisted isometrics for knee flexion and extension. Contract relax with PROM. Assisted patient to stationary bike for half and full revolutions. Total minutes of Exercise: 42mins Manual Therapy: na HOME EXERCISE PROGRAM: TKA protocol- advised to focus on extension and flexion. Quad sets, Ham sets, SLR, sitting LAQ and active flexion. - Charges Total Direct Minutes: 42mins Total Treatment Time: 52mins Procedures billed for this date of service:: EX3 Assessment: Patient able to tolerate increase in resistance with exercise. Patient Education: Home Exercise Program Patient demonstrates compliance with HEP?: Yes Short Term Goals Goal #1: Right knee to demonstrate full extension. Goal to be met by: 01/30/17 Progress towards Goal:: Progressing Goal #2: Right knee active flexion to 95 degrees. Goal to be met by: 02/03/17 Progress towards Goal:: Progressing Goal #3: Right quad control improved to good. 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 Goal to be met by: 03/06/17 Progress towards goal: Progressing Goal #2: Score on LE functional scale improved to 60/80. Goal to be met by: 03/06/17 Goal #3: Pt to amb. w/o asst device, community distances and min. gait deviation. Goal to be met by: 03/06/17 Progress towards goal: No Change Goal #4: Right knee AROM WFL's to perform all ADL's without difficulty. Goal to be met by: 03/06/17 Progress towards goal: No Change Plan PLAN OF CARE EXPIRES ON:: 03/06/17 ORDER # VISITS AND/OR THROUGH DATE: 03/06/17 PLAN: Continue Plan of Care
--- NOTE | 2017-02-10 15:27 | RS.OPPTDN ---
Subjective Date of Note: 02/10/17 Visit #: 9 Date of Evaluation: 01/20/17 Payer Source: Insurance Treatment Diagnosis: Right knee pain, right knee effusion, stiffness, s/p TKA Current Subjective/complaints:: Patient reports continued tightness. States pain at the medial knee joint continues to limit ROM. Pain Assessment - Pain Description Pain Location: Right knee Pain Description: tight and swollen Current Pain Intensity: 5/10 - Heat/Cryotherapy Treatment: Hot Pack ([id number] to the right knee and along hamstrings prior to EX. Patient in supine. ) Interventions - Exercise/Activities/Manual Therapy Exercises/Activities: 40mins. PROM of the right knee joint. SLR, Quad sets, ham sets. SAQ with 3#, 3s/10reps. Green theraband for resistive ankle df and ham curl, 3s/10reps each. Isometric hip add. PROM in sitting. In sitting, green theraband for resistive knee flexion and extension. Manually resisted isometrics for knee flexion and extension. Contract relax with PROM. Assisted patient to stationary bike for full revolutions, x8mins not included in direct time. Total minutes of Exercise: 40mins Manual Therapy: na HOME EXERCISE PROGRAM: TKA protocol- advised to focus on extension and flexion. Quad sets, Ham sets, SLR, sitting LAQ and active flexion. - Charges Total Direct Minutes: 40mins Total Treatment Time: 48mins Procedures billed for this date of service:: 63mins Assessment: Patient able to tolerate PROM better today. Patient Education: Home Exercise Program Patient demonstrates compliance with HEP?: Yes Short Term Goals Goal #1: Right knee to demonstrate full extension. Goal to be met by: 01/30/17 Progress towards Goal:: Progressing Goal #2: Right knee active flexion to 95 degrees. Goal to be met by: 02/03/17 Progress towards Goal:: Progressing Goal #3: Right quad control improved to good. Goal to be met by: 02/03/17 Progress towards Goal:: Progressing Halfway Goals Goal #1: Pt knows HEP and to continue ex's to maintain level of function at D/C. Goal to be met by: 03/06/17 Progress towards goal: Progressing Goal #2: Score on LE functional scale improved to 60/80. Goal to be met by: 03/06/17 Goal #3: Pt to amb. w/o asst device, community distances and min. gait deviation. Goal to be met by: 03/06/17 Progress towards goal: No Change Goal #4: Right knee AROM WFL's to perform all ADL's without difficulty. Goal to be met by: 03/06/17 Progress towards goal: No Change Plan PLAN OF CARE EXPIRES ON:: 03/06/17 ORDER # VISITS AND/OR THROUGH DATE: 03/06/17 PLAN: Continue Plan of Care
--- NOTE | 2017-02-13 14:32 | RS.OPPTDN ---
Subjective Date of Note: 02/13/17 Visit #: 10 Date of Evaluation: 01/20/17 Payer Source: Insurance Treatment Diagnosis: Right knee pain, right knee effusion, stiffness, s/p TKA Current Subjective/complaints:: Patient reports she is discouraged with limited progress with right knee ROM. States sharp nerve pain at the medial knee joint continues to limit her motion. Pain Assessment - Pain Description Pain Location: Right knee Pain Description: tight and swollen Current Pain Intensity: 5/10 - Heat/Cryotherapy Treatment: Hot Pack ([id number] to the right knee joint prior to EX. Patient in supine. ) Interventions - Exercise/Activities/Manual Therapy Exercises/Activities: 40mins. PROM of the right knee joint. SLR, Quad sets, ham sets. SAQ with 3#, 3s/10reps. Green theraband for resistive ankle df and ham curl, 3s/10reps each. Isometric hip add. PROM in sitting. In sitting, green theraband for resistive knee flexion and extension. Manually resisted isometrics for knee flexion and extension. Contract relax with PROM. Patient started with 4mins on stationary bike and ended with 3mins on bike(not included in direct time). Total minutes of Exercise: 40mins Manual Therapy: na HOME EXERCISE PROGRAM: TKA protocol- advised to focus on extension and flexion. Quad sets, Ham sets, SLR, sitting LAQ and active flexion. - Objective Findings Observations,measurements,etc.: Active right knee flexion 87 degrees and passive 94 degrees following exercise session with aggressive stretching. Right knee extension to -6 degrees. - Charges Total Direct Minutes: 40mins Total Treatment Time: 62mins Procedures billed for this date of service:: HP, EX3 Assessment: Patient making slow but steady progress. Pain at medial knee joint continues to limit tolerance with PROM. Patient Education: Home Exercise Program Patient demonstrates compliance with HEP?: Yes Short Term Goals Goal #1: Right knee to demonstrate full extension. Goal to be met by: 03/02/17 Progress towards Goal:: Progressing Goal #2: Right knee active flexion to 95 degrees. Goal to be met by: 03/06/17 Progress towards Goal:: Progressing Goal #3: Right quad control improved to good. Goal to be met by: 03/06/17 Progress towards Goal:: Progressing Assisted Goals Goal #1: Pt knows HEP and to continue ex's to maintain level of function at D/C. Goal to be met by: 03/06/17 Progress towards goal: Progressing Goal #2: Score on LE functional scale improved to 60/80. Goal to be met by: 03/06/17 Goal #3: Pt to amb. w/o asst device, community distances and min. gait deviation. Goal to be met by: 03/06/17 Progress towards goal: No Change Goal #4: Right knee AROM WFL's to perform all ADL's without difficulty. Goal to be met by: 03/06/17 Progress towards goal: No Change Plan PLAN OF CARE EXPIRES ON:: 03/06/17 ORDER # VISITS AND/OR THROUGH DATE: 03/06/17 PLAN: Progress Exercises (Continue and progress ROM and strengthening. STG dates extended to give patient time to meet goals.)
--- NOTE | 2017-02-15 15:31 | RS.OPPTDN ---
Subjective Date of Note: 02/15/17 Visit #: 11 Date of Evaluation: 01/20/17 Payer Source: Insurance Treatment Diagnosis: Right knee pain, right knee effusion, stiffness, s/p TKA Current Subjective/complaints:: Patient reports she is scheduled for a manuipulation next week. She presents orders to attend 5 days per week for 2 weeks following procedure. Pain Assessment - Pain Description Pain Location: Right knee Pain Description: tight and swollen Current Pain Intensity: 5/10 - Heat/Cryotherapy Treatment: Hot Pack ([id number] to the right knee prior to EX. Patient in supine. ) Interventions - Exercise/Activities/Manual Therapy Exercises/Activities: 40mins. PROM of the right knee joint. SLR, Quad sets, ham sets. SAQ with 3#, 3s/10reps. Isometric hip add. PROM in sitting. In sitting, green theraband for resistive knee flexion and extension. Manually resisted isometrics for knee flexion and extension. Contract relax with PROM. 3mins on stationary bike(not in direct time). Biodex for PROM, 3s/5reps of isometrics, and 5reps each of isokinetics at 90, 75, and 60 deg/second. Total minutes of Exercise: 40mins Manual Therapy: na HOME EXERCISE PROGRAM: TKA protocol- advised to focus on extension and flexion. Quad sets, Ham sets, SLR, sitting LAQ and active flexion. - Objective Findings Observations,measurements,etc.: Active right knee flexion to 87 degrees and passive to 94 degrees with aggressive stretching. - Charges Total Direct Minutes: 43mins Total Treatment Time: 57mins Procedures billed for this date of service:: HP, EX3 Assessment: Patient continues to make slow but steady progress. She is scheduled for a right knee joint manipulation next week so treatment will be put on hold at this time. Patient Education: Home Exercise Program Patient demonstrates compliance with HEP?: Yes Short Term Goals Goal #1: Right knee to demonstrate full extension. Goal to be met by: 03/02/17 Progress towards Goal:: Progressing Goal #2: Right knee active flexion to 95 degrees. Goal to be met by: 03/06/17 Progress towards Goal:: Progressing Goal #3: Right quad control improved to good. Goal to be met by: 03/06/17 Progress towards Goal:: Progressing Alf Goals Goal #1: Pt knows HEP and to continue ex's to maintain level of function at D/C. Goal to be met by: 03/06/17 Progress towards goal: Progressing Goal #2: Score on LE functional scale improved to 60/80. Goal to be met by: 03/06/17 Goal #3: Pt to amb. w/o asst device, community distances and min. gait deviation. Goal to be met by: 03/06/17 Progress towards goal: No Change Goal #4: Right knee AROM WFL's to perform all ADL's without difficulty. Goal to be met by: 03/06/17 Progress towards goal: No Change Plan PLAN OF CARE EXPIRES ON:: 03/06/17 ORDER # VISITS AND/OR THROUGH DATE: 03/06/17 PLAN: Hold (Will hold treatment and resume next week following joint manipulation.)
--- NOTE | 2017-02-23 14:29 | RS.PTSUM ---
Progress Note/Summary Date of Note: 02/23/17 Date of Evaluation: 01/20/17 Current Complaints/Gains: Patient just had a manipulation of the right knee yesterday 02/22/17. States the knee feels better than it has in a while. She thinks he injected the knee with "a bunch of stuff". She has been icing the knee and performing ROM exercises to keep it from tightening up. Objective Measurements/Presentation: Active right knee flexion in sitting 90 degrees. Assisted flexion in supine 103 degrees. Extension -15 degrees from full extension. Ambulated in department with quad cane to be cautious. G Codes: NA Source of G Code Score: NA - Short Term Goals Goal #1: Right knee to demonstrate full extension. Goal to be met by: 03/13/17 Progress towards Goal:: Regressing (today, since manipulation yesterday) Goal #2: Right knee active flexion to 110 degrees. Goal to be met by: 03/13/17 Progress towards Goal:: Progressing Goal #3: Right quad control improved to 4+/5. 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 Goal to be met by: 03/30/17 Progress towards goal: Progressing Goal #2: Score on LE functional scale improved to 60/80. Goal to be met by: 03/30/17 Progress towards goal: Progressing Goal #3: Pt to amb. w/o asst device, community distances and min. gait deviation. Goal to be met by: 03/30/17 Goal #4: Right knee AROM WFL's to perform all ADL's without difficulty. Goal to be met by: 03/30/17 - Assessment Assessment of Improvement/Progress: Patient one day s/p right knee manipulation. She demonstrates improved active flexion, but less extension. She demonstrates great potential to regain functional right knee AROM. She is compliant with icing the knee and performing exercises at home. - Plan Plan: Continue Plan of Care Frequency: Daily (X 2 weeks, then 3 times a week for 2 weeks.) PLAN OF CARE EXPIRES ON:: 03/30/17 ORDER # VISITS AND/OR THROUGH DATE: 03/30/17
--- NOTE | 2017-02-23 14:47 | RS.OPPTDN ---
Subjective Date of Note: 02/23/17 Visit #: 12 Date of Evaluation: 01/20/17 Payer Source: Insurance Treatment Diagnosis: Right knee pain, right knee effusion, stiffness, s/p TKA Current Subjective/complaints:: Patient reports having right knee manipulation yesterday. States she has some increasead swelling and has been using ice as instructed. Pain Assessment - Pain Description Pain Location: Right knee Pain Description: tight and swollen Current Pain Intensity: 5/10 - Heat/Cryotherapy Treatment: Cryotherapy ([id number] to the right knee following EX. Patient in supine. ) Interventions - Exercise/Activities/Manual Therapy Exercises/Activities: 40mins. PROM of the right knee joint in supine and sitting. Hamstring stretching. Stationary bike 10mins. Biodex for PROM of the right knee. Ended with additional stretching into flexion and extension with patient supine on high mat table. Quad sets, ham sets. Total minutes of Exercise: 40mins/50mins Manual Therapy: na HOME EXERCISE PROGRAM: TKA protocol- advised to focus on extension and flexion. Quad sets, Ham sets, SLR, sitting LAQ and active flexion. - Charges Total Direct Minutes: 40mins Total Treatment Time: 65mins Procedures billed for this date of service:: EX3, CP Assessment: Patient demos improvement in ROM of the right knee since manipulation yesterday. She will attend daily for 2 weeks with focus on ROM. Patient Education: Home Exercise Program Patient demonstrates compliance with HEP?: Yes Short Term Goals Goal #1: Right knee to demonstrate full extension. Goal to be met by: 03/13/17 Progress towards Goal:: Regressing (today, since manipulation yesterday) Goal #2: Right knee active flexion to 110 degrees. Goal to be met by: 03/13/17 Progress towards Goal:: Progressing Goal #3: Right quad control improved to 4+/5. Goal to be met by: 03/05/17 Progress towards Goal:: Progressing Oil Operator Goals Goal #1: Pt knows HEP and to continue ex's to maintain level of function at D/C. Goal to be met by: 03/30/17 Progress towards goal: Progressing Goal #2: Score on LE functional scale improved to 60/80. Goal to be met by: 03/30/17 Progress towards goal: Progressing Goal #3: Pt to amb. w/o asst device, community distances and min. gait deviation. Goal to be met by: 03/30/17 Goal #4: Right knee AROM WFL's to perform all ADL's without difficulty. Goal to be met by: 03/30/17 Plan PLAN OF CARE EXPIRES ON:: 03/30/17 ORDER # VISITS AND/OR THROUGH DATE: 03/30/17 PLAN: Continue Plan of Care (Continue with ROM exercise.)
--- NOTE | 2017-02-24 15:15 | RS.OPPTDN ---
Subjective Date of Note: 02/24/17 Visit #: 13 Date of Evaluation: 01/20/17 Payer Source: Insurance Treatment Diagnosis: Right knee pain, right knee effusion, stiffness, s/p TKA Current Subjective/complaints:: Patient reports increased joint tightness this morning, but feels like she is doing better this afternoon. She is walking without cane today. Pain Assessment - Pain Description Pain Location: Right knee Pain Description: tight and swollen Current Pain Intensity: 5/10 Interventions - Exercise/Activities/Manual Therapy Exercises/Activities: 55mins. Focus time on PROM of the right knee joint in supine and sitting. Hamstring stretching. Stationary bike 10mins. Biodex for PROM of the right knee. Isometrics on Biodex at angles between 90 degrees and 60 degrees flexion. Ended with additional stretching into flexion and extension with patient supine on high mat table. Quad sets, multiple reps. Total minutes of Exercise: 55mins/65mins Manual Therapy: na HOME EXERCISE PROGRAM: TKA protocol- advised to focus on extension and flexion. Quad sets, Ham sets, SLR, sitting LAQ and active flexion. - Objective Findings Observations,measurements,etc.: Passive right knee flexion to 110 degrees. Active right knee extension to -9 degrees. - Charges Total Direct Minutes: 55mins Total Treatment Time: 65mins Procedures billed for this date of service:: EX4 Assessment: Patient progressing with ROM. Patient Education: Body/Joint mechanics, Home Exercise Program, Home Safety, Activity Modification Patient demonstrates compliance with HEP?: Yes Short Term Goals Goal #1: Right knee to demonstrate full extension. Goal to be met by: 03/13/17 Progress towards Goal:: Progressing (today, since manipulation yesterday) Goal #2: Right knee active flexion to 110 degrees. Goal to be met by: 03/13/17 Progress towards Goal:: Progressing Comments:: Demos passive flexion to 110 degrees Goal #3: Right quad control improved to 4+/5. Goal to be met by: 03/05/17 Progress towards Goal:: Progressing Shelter Goals Goal #1: Pt knows HEP and to continue ex's to maintain level of function at D/C. Goal to be met by: 03/30/17 Progress towards goal: Progressing Goal #2: Score on LE functional scale improved to 60/80. Goal to be met by: 03/30/17 Progress towards goal: Progressing Goal #3: Pt to amb. w/o asst device, community distances and min. gait deviation. Goal to be met by: 03/30/17 Goal #4: Right knee AROM WFL's to perform all ADL's without difficulty. Goal to be met by: 03/30/17 Plan PLAN OF CARE EXPIRES ON:: 03/30/17 ORDER # VISITS AND/OR THROUGH DATE: 03/30/17 PLAN: Continue Plan of Care
--- NOTE | 2017-02-27 11:58 | RS.OPPTDN ---
Subjective Date of Note: 02/27/17 Visit #: 14 Date of Evaluation: 01/20/17 Payer Source: Insurance Treatment Diagnosis: Right knee pain, right knee effusion, stiffness, s/p TKA Current Subjective/complaints:: Patient reports consistently working on HEP over weekend. States right knee continues to be tight, but improving. Pain Assessment - Pain Description Pain Location: Right knee Pain Description: tight and swollen Current Pain Intensity: mild to mod - Heat/Cryotherapy Treatment: Cryotherapy ([id number] to the right knee following exercise. Patient in supine. ) Interventions - Exercise/Activities/Manual Therapy Exercises/Activities: 40mins. Stationary bike 10mins(not included in direct time ). Continued to focus on PROM of the right knee joint in supine and sitting. Hamstring stretching. Biodex for PROM of the right knee. Isometrics on Biodex at angles between 90 degrees and 60 degrees flexion. Began isokinetics on Biodex at 120, 105, and 90 degrees per second settings. Isometric knee flexion and extension in sitting. Ended with additional stretching into flexion and extension with patient supine on high mat table. Total minutes of Exercise: 40mins/50mins Manual Therapy: na HOME EXERCISE PROGRAM: TKA protocol- advised to focus on extension and flexion. Quad sets, Ham sets, SLR, sitting LAQ and active flexion. - Objective Findings Observations,measurements,etc.: Passive right knee flexion to 111 degrees with aggressive stretch. Active right knee extension to -6 degrees at end of exercise session. - Charges Total Direct Minutes: 40mins Total Treatment Time: 65mins Procedures billed for this date of service:: EX3, CP Assessment: Patient progressing ROM and consisitently walking without cane. Patient Education: Body/Joint mechanics, Home Exercise Program, Activity Modification Comments: Advised patient to work on HEP a minimum of 4 times per day, and also passive flexion and extension throughout the day. Patient demonstrates compliance with HEP?: Yes Short Term Goals Goal #1: Right knee to demonstrate full extension. Goal to be met by: 03/13/17 Progress towards Goal:: Progressing Comments:: -6 degrees Goal #2: Right knee active flexion to 110 degrees. Goal to be met by: 03/13/17 Progress towards Goal:: Progressing Comments:: Passive flexion 111 degrees. Goal #3: Right quad control improved to 4+/5. 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 Goal to be met by: 03/30/17 Progress towards goal: Progressing Goal #2: Score on LE functional scale improved to 60/80. Goal to be met by: 03/30/17 Progress towards goal: Progressing Goal #3: Pt to amb. w/o asst device, community distances and min. gait deviation. Goal to be met by: 03/30/17 (100%) Progress towards goal: Met Goal #4: Right knee AROM WFL's to perform all ADL's without difficulty. Goal to be met by: 03/30/17 Progress towards goal: Progressing Plan PLAN OF CARE EXPIRES ON:: 03/30/17 ORDER # VISITS AND/OR THROUGH DATE: 03/30/17 PLAN: Continue Plan of Care
--- NOTE | 2017-02-28 14:31 | RS.OPPTDN ---
Subjective Date of Note: 02/28/17 Visit #: 15 Date of Evaluation: 01/20/17 Payer Source: Insurance Treatment Diagnosis: Right knee pain, right knee effusion, stiffness, s/p TKA Current Subjective/complaints:: No new c/o. States she is working on HEP and ROM seems better again today. Pain Assessment - Pain Description Pain Location: Right knee Pain Description: tight and swollen Current Pain Intensity: mild to mod Interventions - Exercise/Activities/Manual Therapy Exercises/Activities: 40mins. Stationary bike 10mins(not included in direct time ). Continued to focus on PROM of the right knee joint in supine and sitting. Hamstring stretching. SLR, hip abd, and heel slides. Biodex for PROM of the right knee. Isometrics on Biodex at angles between 90 degrees and 60 degrees flexion. Isokinetics on Biodex at 120, 105, and 90 degrees per second settings. Isometric knee flexion and extension in sitting. Ended with additional stretching into flexion and extension with patient supine on high mat table. Total minutes of Exercise: 40mins/50mins Manual Therapy: na HOME EXERCISE PROGRAM: TKA protocol- advised to focus on extension and flexion. Quad sets, Ham sets, SLR, sitting LAQ and active flexion. - Charges Total Direct Minutes: 40mins Total Treatment Time: 50mins Procedures billed for this date of service:: EX3 Assessment: Continue to aggressively stretch right knee into flexion and extension. Short Term Goals Goal #1: Right knee to demonstrate full extension. Goal to be met by: 03/13/17 Progress towards Goal:: Progressing Goal #2: Right knee active flexion to 110 degrees. Goal to be met by: 03/13/17 Progress towards Goal:: Progressing Goal #3: Right quad control improved to 4+/5. Goal to be met by: 03/05/17 Progress towards Goal:: Partially Met Male Impersonator Goals Goal #1: Pt knows HEP and to continue ex's to maintain level of function at D/C. Goal to be met by: 03/30/17 Progress towards goal: Progressing Goal #2: Score on LE functional scale improved to 60/80. Goal to be met by: 03/30/17 Progress towards goal: Progressing Goal #3: Pt to amb. w/o asst device, community distances and min. gait deviation. Goal to be met by: 03/30/17 (100%) Progress towards goal: Met Goal #4: Right knee AROM WFL's to perform all ADL's without difficulty. Goal to be met by: 03/30/17 Progress towards goal: Progressing Plan PLAN OF CARE EXPIRES ON:: 03/30/17 ORDER # VISITS AND/OR THROUGH DATE: 03/30/17 PLAN: Continue Plan of Care (Continue to focus on ROM of right knee as well as progressive strengthening.)
--- NOTE | 2017-03-01 14:44 | RS.OPPTDN ---
Subjective Date of Note: 03/01/17 Visit #: 16 Date of Evaluation: 01/20/17 Payer Source: Insurance Treatment Diagnosis: Right knee pain, right knee effusion, stiffness, s/p TKA Current Subjective/complaints:: Patient reports she feels like there is more swelling in the right knee today. Pain Assessment - Pain Description Pain Location: Right knee Pain Description: tight and swollen Current Pain Intensity: mild to mod Interventions - Exercise/Activities/Manual Therapy Exercises/Activities: 53mins. Stationary bike 5mins(not included in direct time) . Continued to focus on PROM of the right knee joint in supine and sitting. Hamstring stretching. SLR, hip abd, and heel slides. In sitting, LAQ with 5# and green theraband for ham curls, 3s/10reps each. Biodex for PROM of the right knee. Isometrics on Biodex at angles between 90 degrees and 60 degrees flexion, 5sets of 5reps. Isokinetics on Biodex at 120, 105, 90, 75, and 60 degrees per second settings, 5reps of each set. Isometric knee flexion and extension in sitting. Ended with additional stretching into flexion and extension with patient supine on high mat table. Total minutes of Exercise: 53mins/58mins Manual Therapy: na HOME EXERCISE PROGRAM: TKA protocol- advised to focus on extension and flexion. Quad sets, Ham sets, SLR, sitting LAQ and active flexion. - Objective Findings Observations,measurements,etc.: Passive right knee flexion to 112 degrees today. - Charges Total Direct Minutes: 53mins Total Treatment Time: 58mins Procedures billed for this date of service:: EX4 Assessment: Patient continues to demo slow but steaady progress with ROM. Patient Education: Home Exercise Program Patient demonstrates compliance with HEP?: Yes Short Term Goals Goal #1: Right knee to demonstrate full extension. Goal to be met by: 03/13/17 Progress towards Goal:: Progressing Goal #2: Right knee active flexion to 110 degrees. Goal to be met by: 03/13/17 Progress towards Goal:: Progressing Goal #3: Right quad control improved to 4+/5. Goal to be met by: 03/05/17 Progress towards Goal:: Partially Met Director Of Community [employer] Goals Goal #1: Pt knows HEP and to continue ex's to maintain level of function at D/C. Goal to be met by: 03/30/17 Progress towards goal: Progressing Goal #2: Score on LE functional scale improved to 60/80. Goal to be met by: 03/30/17 Progress towards goal: Progressing Goal #3: Pt to amb. w/o asst device, community distances and min. gait deviation. Goal to be met by: 03/30/17 (100%) Progress towards goal: Met Goal #4: Right knee AROM WFL's to perform all ADL's without difficulty. Goal to be met by: 03/30/17 Progress towards goal: Progressing Plan PLAN OF CARE EXPIRES ON:: 03/30/17 ORDER # VISITS AND/OR THROUGH DATE: 03/30/17 PLAN: Continue Plan of Care (Continue and progress strength and ROM to prepare patient for return to work and PLOF.)
--- NOTE | 2017-03-02 14:34 | RS.OPPTDN ---
Subjective Date of Note: 03/02/17 Visit #: 17 Date of Evaluation: 01/20/17 Payer Source: Insurance Treatment Diagnosis: Right knee pain, right knee effusion, stiffness, s/p TKA Current Subjective/complaints:: Patient reports continued tightness, but feels like ROM is progressing. Pain Assessment - Pain Description Pain Location: Right knee Pain Description: tight and swollen Current Pain Intensity: mild to mod Interventions - Exercise/Activities/Manual Therapy Exercises/Activities: 50mins. Stationary bike 5mins(not included in direct time) . Continued to focus on PROM of the right knee joint in supine and sitting. Hamstring stretching. SLR, hip abd, and heel slides. In sitting, LAQ and isometrics. Biodex for PROM of the right knee. Isometrics on Biodex at angles between 90 degrees and 60 degrees flexion, 5sets of 5reps. Isokinetics on Biodex at 120, 105, 90, 75, and 60 degrees per second settings, increased to 7reps of each set. Isometric knee flexion and extension in sitting. Ended with additional stretching into flexion and extension with patient supine on high mat table. Total minutes of Exercise: 50mins Manual Therapy: na HOME EXERCISE PROGRAM: TKA protocol- advised to focus on extension and flexion. Quad sets, Ham sets, SLR, sitting LAQ and active flexion. - Objective Findings Observations,measurements,etc.: Patient demos 110 degrees active flexion. - Charges Total Direct Minutes: 50mins Total Treatment Time: 50mins Procedures billed for this date of service:: EX3 Assessment: Patient making consistent progress with ROM and strengthening. Patient Education: Home Exercise Program Patient demonstrates compliance with HEP?: Yes Short Term Goals Goal #1: Right knee to demonstrate full extension. Goal to be met by: 03/13/17 (90%) Progress towards Goal:: Progressing Goal #2: Right knee active flexion to 110 degrees. Goal to be met by: 03/13/17 (100%) Progress towards Goal:: Met Goal #3: Right quad control improved to 4+/5. Goal to be met by: 03/05/17 (90%) Progress towards Goal:: Partially Met Burnisher And Bumper Goals Goal #1: Pt knows HEP and to continue ex's to maintain level of function at D/C. Goal to be met by: 03/30/17 Progress towards goal: Progressing Goal #2: Score on LE functional scale improved to 60/80. Goal to be met by: 03/30/17 Progress towards goal: Progressing Goal #3: Pt to amb. w/o asst device, community distances and min. gait deviation. Goal to be met by: 03/30/17 (100%) Progress towards goal: Met Goal #4: Right knee AROM WFL's to perform all ADL's without difficulty. Goal to be met by: 03/30/17 Progress towards goal: Progressing Plan PLAN OF CARE EXPIRES ON:: 03/30/17 ORDER # VISITS AND/OR THROUGH DATE: 03/30/17 PLAN: Continue Plan of Care
--- NOTE | 2017-03-03 15:07 | RS.OPPTDN ---
Subjective Date of Note: 03/03/17 Visit #: 18 Date of Evaluation: 01/20/17 Payer Source: Insurance Treatment Diagnosis: Right knee pain, right knee effusion, stiffness, s/p TKA Current Subjective/complaints:: Patient reports tightness again today. Pain Assessment - Pain Description Pain Location: Right knee Pain Description: tight and swollen Current Pain Intensity: mild to mod Interventions - Exercise/Activities/Manual Therapy Exercises/Activities: 45mins. Stationary bike 5mins(not included in direct time) . Continued to focus on PROM of the right knee joint in supine and sitting. Hamstring stretching. SLR, hip abd, and heel slides. 4# for SAQ. Green theraband for ham curl, ankle df, and hip abd and add in hook-lying. In sitting , LAQ and green theraband for ham curl. Biodex for PROM of the right knee. Isometrics on Biodex at angles between 90 degrees and 60 degrees flexion, 5sets of 5reps. Isokinetics on Biodex at 120, 105, 90, 75, and 60 degrees per second settings, 5reps of each set. Isometric knee flexion and extension in sitting. Ended with additional stretching into flexion and extension with patient supine on high mat table. Total minutes of Exercise: 45mins/50mins Manual Therapy: na HOME EXERCISE PROGRAM: TKA protocol- advised to focus on extension and flexion. Quad sets, Ham sets, SLR, sitting LAQ and active flexion. - Objective Findings Observations,measurements,etc.: Passive right knee flexion remains between 110 and 112 degrees with aggressive stretching. Active right knee extension to -5 degrees following exercises. - Charges Total Direct Minutes: 45mins Total Treatment Time: 50mins Procedures billed for this date of service:: EX3 Assessment: Patient continues to have difficulty with swelling and ROM is progressing very slowly. Patient Education: Home Exercise Program Patient demonstrates compliance with HEP?: Yes Short Term Goals Goal #1: Right knee to demonstrate full extension. Goal to be met by: 03/13/17 (90%) Progress towards Goal:: Progressing Goal #2: Right knee active flexion to 110 degrees. Goal to be met by: 03/13/17 Progress towards Goal:: Regressing Comments:: less than 110 degrees today Goal #3: Right quad control improved to 4+/5. Goal to be met by: 03/05/17 (90%) Progress towards Goal:: Partially Met Manager Building Goals Goal #1: Pt knows HEP and to continue ex's to maintain level of function at D/C. Goal to be met by: 03/30/17 Progress towards goal: Progressing Goal #2: Score on LE functional scale improved to 60/80. Goal to be met by: 03/30/17 Progress towards goal: Progressing Goal #3: Pt to amb. w/o asst device, community distances and min. gait deviation. Goal to be met by: 03/30/17 (100%) Progress towards goal: Met Goal #4: Right knee AROM WFL's to perform all ADL's without difficulty. Goal to be met by: 03/30/17 Progress towards goal: Progressing Plan PLAN OF CARE EXPIRES ON:: 03/30/17 ORDER # VISITS AND/OR THROUGH DATE: 03/30/17 PLAN: Continue Plan of Care (Continue progressing ROM of the right knee.)
--- NOTE | 2017-03-06 14:06 | RS.OPPTDN ---
Subjective Date of Note: 03/06/17 Visit #: 19 Date of Evaluation: 01/20/17 Payer Source: Insurance Treatment Diagnosis: Right knee pain, right knee effusion, stiffness, s/p TKA Current Subjective/complaints:: Patient reports doing her exercises as much as possible,continues to be motivated. Pain Assessment - Pain Description Pain Location: Right knee Pain Description: tight and swollen Current Pain Intensity: mild to mod Interventions - Exercise/Activities/Manual Therapy Exercises/Activities: 55mins. Stationary bike 10 mins(not included in direct time). Continued to focus on PROM of the right knee joint in supine and sitting. Multiple reps. of hamstring stretches, heelslides,contract-relax to quads.Grade III AP joint mobs. to R knee.Aggressive passive stretches after contract-relax to quads with 121 to 123 degrees,active flexion to 112 x 3.Ended session on BIODEX passive setting x 5 mins. from 90 degrees flexed to - 5 degrees extension. Total minutes of Exercise: 55 Manual Therapy: na Total minutes of Manual Therapy: 0 HOME EXERCISE PROGRAM: TKA protocol- advised to focus on extension and flexion. Quad sets, Ham sets, SLR, sitting LAQ and active flexion. - Charges Total Direct Minutes: 45 Total Treatment Time: 55 Procedures billed for this date of service:: ex 3 Assessment: Patient has increased flexion today ,with continued soft end feel present .She has full extension passively on bolster today.She continues to be motivated to improve.Her gait pattern is minimally antalgic upon entering clinic today,and less after treatment. Patient Education: Education of diagnosis, Body/Joint mechanics, Home Exercise Program, Home Safety, Activity Modification, Education of Plan of Care Patient demonstrates compliance with HEP?: Yes Short Term Goals Goal #1: Right knee to demonstrate full extension. Goal to be met by: 03/13/17 (90%) Progress towards Goal:: Progressing Goal #2: Right knee active flexion to 110 degrees. Goal to be met by: 03/13/17 Progress towards Goal:: Progressing Goal #3: Right quad control improved to 4+/5. Goal to be met by: 03/05/17 (90%) Progress towards Goal:: Partially Met Care Home Goals Goal #1: Pt knows HEP and to continue ex's to maintain level of function at D/C. Goal to be met by: 03/30/17 Progress towards goal: Progressing Goal #2: Score on LE functional scale improved to 60/80. Goal to be met by: 03/30/17 Progress towards goal: Progressing Goal #3: Pt to amb. w/o asst device, community distances and min. gait deviation. Goal to be met by: 03/30/17 (100%) Progress towards goal: Met Goal #4: Right knee AROM WFL's to perform all ADL's without difficulty. Goal to be met by: 03/30/17 Progress towards goal: Progressing Plan PLAN OF CARE EXPIRES ON:: 03/30/17 ORDER # VISITS AND/OR THROUGH DATE: 03/30/17 PLAN: Progress Exercises
--- NOTE | 2017-03-07 14:21 | RS.OPPTDN ---
Subjective Date of Note: 03/07/17 Visit #: 20 Date of Evaluation: 01/20/17 Payer Source: Insurance Treatment Diagnosis: Right knee pain, right knee effusion, stiffness, s/p TKA Current Subjective/complaints:: Patient reports muscle soreness right quads. Reports she will see physician on and hopes to be able to return to work. Pain Assessment - Pain Description Pain Location: Right knee Pain Description: tight and swollen Current Pain Intensity: mild to mod Interventions - Exercise/Activities/Manual Therapy Exercises/Activities: Stationary bike 3 mins(not included in direct time). Focus on PROM of the right knee joint in supine and sitting. Multiple reps of hamstring stretches, heelslides, contract-relax to quads. Aggressive passive stretches after contract-relax to quads with flexion to 118 degrees, and active flexion to 108 degrees. BIODEX passive setting x 5 mins. Isometrics 6 sets of 5 reps in ranges of 60 to 90 degrees flexion. Isokinetics at 150, 120, 90, 60, and 45 deg/sec settings, 7 reps each set. Total minutes of Exercise: 50mins/53mins Manual Therapy: na HOME EXERCISE PROGRAM: TKA protocol- advised to focus on extension and flexion. Quad sets, Ham sets, SLR, sitting LAQ and active flexion. - Charges Total Direct Minutes: 50mins Total Treatment Time: 53mins Procedures billed for this date of service:: EX3 Assessment: Patient continues to demo improvement in AROM and PROM. Patient Education: Home Exercise Program Patient demonstrates compliance with HEP?: Yes Short Term Goals Goal #1: Right knee to demonstrate full extension. Goal to be met by: 03/13/17 (90%) Progress towards Goal:: Progressing Goal #2: Right knee active flexion to 110 degrees. Goal to be met by: 03/13/17 Progress towards Goal:: Progressing Goal #3: Right quad control improved to 4+/5. Goal to be met by: 03/05/17 (90%) Progress towards Goal:: Partially Met Long-Term Goals Goal #1: Pt knows HEP and to continue ex's to maintain level of function at D/C. Goal to be met by: 03/30/17 Progress towards goal: Progressing Goal #2: Score on LE functional scale improved to 60/80. Goal to be met by: 03/30/17 Progress towards goal: Progressing Goal #3: Pt to amb. w/o asst device, community distances and min. gait deviation. Goal to be met by: 03/30/17 (100%) Progress towards goal: Met Goal #4: Right knee AROM WFL's to perform all ADL's without difficulty. Goal to be met by: 03/30/17 Progress towards goal: Progressing Plan PLAN OF CARE EXPIRES ON:: 03/30/17 ORDER # VISITS AND/OR THROUGH DATE: 03/30/17 PLAN: Progress Exercises
--- NOTE | 2017-03-08 16:14 | RS.OPPTDN ---
Subjective Date of Note: 03/08/17 Visit #: 21 Date of Evaluation: 01/20/17 Payer Source: Insurance Treatment Diagnosis: Right knee pain, right knee effusion, stiffness, s/p TKA Current Subjective/complaints:: Patient states she has seen improvement in strength and ROM of the right knee, but feels swelling continues to limit progress. Pain Assessment - Pain Description Pain Location: Right knee Pain Description: tight and swollen Current Pain Intensity: mild to mod Interventions - Exercise/Activities/Manual Therapy Exercises/Activities: Stationary bike 8 mins(not included in direct time). Focus on PROM of the right knee joint in supine and sitting on elevated Biodex chair. Multiple reps of hamstring stretches, heelslides, contract-relax to quads. Aggressive passive stretches after contract-relax to quads with flexion to 120 degrees, and active flexion to 114 degrees. Active right knee extension to -3 degrees following aggressive stretching. Witheld Isometric and Isokinetic rehab on Biodex today to focus on ROM. Total minutes of Exercise: 40mins/48mins Manual Therapy: na HOME EXERCISE PROGRAM: TKA protocol- advised to focus on extension and flexion. Quad sets, Ham sets, SLR, sitting LAQ and active flexion. - Objective Findings Observations,measurements,etc.: Passive right knee flexion 120 degrees, and active flexion to 114 degrees. Active right knee extension to -3 degrees following aggressive stretching. - Charges Total Direct Minutes: 40mins Total Treatment Time: 48mins Procedures billed for this date of service:: EX3 Assessment: Patient has made good progress with ROM. She is independent with basic HEP. Patient Education: Home Exercise Program, Home Safety Patient demonstrates compliance with HEP?: Yes Short Term Goals Goal #1: Right knee to demonstrate full extension. Goal to be met by: 03/13/17 (90%) Progress towards Goal:: Progressing Goal #2: Right knee active flexion to 110 degrees. Goal to be met by: 03/13/17 Progress towards Goal:: Met Goal #3: Right quad control improved to 4+/5. Goal to be met by: 03/05/17 (100%) Progress towards Goal:: Met Watch Assembly Inspector Goals Goal #1: Pt knows HEP and to continue ex's to maintain level of function at D/C. Goal to be met by: 03/30/17 Progress towards goal: Progressing Goal #2: Score on LE functional scale improved to 60/80. Goal to be met by: 03/30/17 Progress towards goal: Progressing Goal #3: Pt to amb. w/o asst device, community distances and min. gait deviation. Goal to be met by: 03/30/17 (100%) Progress towards goal: Met Goal #4: Right knee AROM WFL's to perform all ADL's without difficulty. Goal to be met by: 03/30/17 Progress towards goal: Met Plan PLAN OF CARE EXPIRES ON:: 03/30/17 ORDER # VISITS AND/OR THROUGH DATE: 03/30/17 PLAN: Return to physician (Patient will return for a follow-up at physicians office tomorrow. She may continue therapy as needed with additional orders.)
== END ==
PROVIDERS: ATTEND Orthopaedic Surgery
DX: M25.561 Pain in right knee (principal)

== ENCOUNTER 2017-03-24 15:00 | Outpatient (RCR) ==
--- NOTE | 2017-03-15 16:29 | RS.OPPTDN ---
Subjective Date of Note: 03/15/17 Visit #: 22 Date of Evaluation: 01/20/17 Payer Source: Insurance Treatment Diagnosis: Right knee pain, right knee effusion, stiffness, s/p TKA Current Subjective/complaints:: Patient reports increase soreness in right knee and in lowback since return to work yesterday. States she is pleased with progress in right knee strength and ROM. Pain Assessment - Pain Description Pain Location: Right knee Pain Description: tight and swollen Current Pain Intensity: mild to mod Interventions - Exercise/Activities/Manual Therapy Exercises/Activities: Stationary bike 5mins(not included in direct time). Focus on PROM of the right knee joint in supine and sitting on elevated [employer] chair. Multiple reps of hamstring stretches, heelslides, contract-relax to quads. SAQ with 5# and SLR with 2#, 3s/10reps each. Sitting ABS for PROM, isometrics for flexion and extension, and green theraband for ham curls, all multiple reps. Total minutes of Exercise: 40mins/45mins Manual Therapy: na HOME EXERCISE PROGRAM: TKA protocol- advised to focus on extension and flexion. Quad sets, Ham sets, SLR, sitting LAQ and active flexion. - Charges Total Direct Minutes: 40mins Total Treatment Time: 45mins Procedures billed for this date of service:: EX3 Assessment: Patient progressing back to full work duty. Patient Education: Home Exercise Program Patient demonstrates compliance with HEP?: Yes Short Term Goals Goal #1: Right knee to demonstrate full extension. Goal to be met by: 03/13/17 (100%) Progress towards Goal:: Met Goal #2: Right knee active flexion to 110 degrees. Goal to be met by: 03/13/17 Progress towards Goal:: Met Goal #3: Right quad control improved to 4+/5. 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 Goal to be met by: 03/30/17 Progress towards goal: Progressing Goal #2: Score on LE functional scale improved to 60/80. Goal to be met by: 03/30/17 Progress towards goal: Progressing Goal #3: Pt to amb. w/o asst device, community distances and min. gait deviation. Goal to be met by: 03/30/17 (100%) Progress towards goal: Met Goal #4: Right knee AROM WFL's to perform all ADL's without difficulty. Goal to be met by: 03/30/17 Progress towards goal: Met Plan PLAN OF CARE EXPIRES ON:: 03/30/17 ORDER # VISITS AND/OR THROUGH DATE: 03/30/17 PLAN: Progress Exercises
--- NOTE | 2017-03-17 16:20 | RS.OPPTDN ---
Subjective Date of Note: 03/17/17 Visit #: 23 Date of Evaluation: 01/20/17 Payer Source: Insurance Treatment Diagnosis: Right knee pain, right knee effusion, stiffness, s/p TKA Current Subjective/complaints:: Patient reports increased swelling and pain today in the right knee following full day of being on feet at work. Reports improvement in pain and swelling following modalities and exercise today. Pain Assessment - Pain Description Pain Location: Right knee Pain Description: tight and swollen Current Pain Intensity: moderate+ - Treatment Modality: Electrical Stim Unattended Parameters/Method Applied: [id number] HVGC to 225p.v. with 4 large pads to the right knee joint with CP prior to EX. Patient Position: Supine - Heat/Cryotherapy Treatment: Cryotherapy ([id number] with Estim) Interventions - Exercise/Activities/Manual Therapy Exercises/Activities: [id number] PROM of the knee joint and hamstring stretching. SLR, heel slides, and ankle pumps. Manually resisted knee flexion in supine and sitting. Passive flexion in sitting with contract/relax. 6mins on stationary bike not included in direct time. Total minutes of Exercise: 15mins/21mins Manual Therapy: na HOME EXERCISE PROGRAM: TKA protocol- advised to focus on extension and flexion. Quad sets, Ham sets, SLR, sitting LAQ and active flexion. - Charges Total Direct Minutes: 15mins Total Treatment Time: 45mins Procedures billed for this date of service:: CP, Estim unattended, EX Assessment: Patient with a flair-up of pain and swelling of the right knee joint. Patient does report good response to modalities and ROM exercise, with increase ROM and reduction in pain. Patient Education: Home Exercise Program, Home Safety, Activity Modification Patient demonstrates compliance with HEP?: Yes Short Term Goals Goal #1: Right knee to demonstrate full extension. Goal to be met by: 03/13/17 (100%) Progress towards Goal:: Met Goal #2: Right knee active flexion to 110 degrees. Goal to be met by: 03/13/17 Progress towards Goal:: Met Goal #3: Right quad control improved to 4+/5. 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 Goal to be met by: 03/30/17 Progress towards goal: Progressing Goal #2: Score on LE functional scale improved to 60/80. Goal to be met by: 03/30/17 Progress towards goal: Progressing Goal #3: Pt to amb. w/o asst device, community distances and min. gait deviation. Goal to be met by: 03/30/17 (100%) Progress towards goal: Met Goal #4: Right knee AROM WFL's to perform all ADL's without difficulty. Goal to be met by: 03/30/17 Progress towards goal: Met Plan PLAN OF CARE EXPIRES ON:: 03/30/17 ORDER # VISITS AND/OR THROUGH DATE: 03/30/17 PLAN: Progress Exercises (Continue progression of exercise to increase functional activity level.)
--- NOTE | 2017-03-27 15:59 | RS.OPPTDN ---
Subjective Date of Note: 03/24/17 Visit #: 24 Date of Evaluation: 01/20/17 Payer Source: Insurance Treatment Diagnosis: Right knee pain, right knee effusion, stiffness, s/p TKA Current Subjective/complaints:: Patient reports improvement in swelling of the right knee. States she is doing better getting up and down from low seats and floor at work. States she feels she can continue HEP and is ready for discharge at this time. Pain Assessment - Pain Description Pain Location: Right knee Pain Description: tight and swollen Current Pain Intensity: mild Interventions - Exercise/Activities/Manual Therapy Exercises/Activities: [id number]. Begins with stationary bike 6mins, not included in direct time. PROM of the knee joint and hamstring stretching. SLR, heel slides, and ankle pumps. SLR and SLR/VMO. Red theraband for ankle df, hip add and hip abd, all 3s/10reps. Isometric hip add with ball. Manually resisted knee flexion in supine and sitting. Passive flexion in sitting with contract/relax. Red theraband for ham curls, multiple reps. Total minutes of Exercise: 35mins/41mins Manual Therapy: na HOME EXERCISE PROGRAM: TKA protocol- advised to focus on extension and flexion. Quad sets, Ham sets, SLR, sitting LAQ and active flexion. - Objective Findings Observations,measurements,etc.: Active right knee flexion 117 degrees and passive knee flexion to 121 degrees. - Charges Total Direct Minutes: 35mins Total Treatment Time: 41mins Procedures billed for this date of service:: EX2 Assessment: Patient has progressed well and demos AROM and PROM WFL. She has met all 7 treatment goals and is independent in HEP and will continue following discharge. Patient Education: Body/Joint mechanics, Home Exercise Program Patient demonstrates compliance with HEP?: Yes Short Term Goals Goal #1: Right knee to demonstrate full extension. Goal to be met by: 03/13/17 (100%) Progress towards Goal:: Met Goal #2: Right knee active flexion to 110 degrees. Goal to be met by: 03/13/17 Progress towards Goal:: Met Goal #3: Right quad control improved to 4+/5. Goal to be met by: 03/05/17 (100%) Progress towards Goal:: Met Halfway Goals Goal #1: Pt knows HEP and to continue ex's to maintain level of function at D/C. Goal to be met by: 03/30/17 Progress towards goal: Met Goal #2: Score on LE functional scale improved to 60/80. Goal to be met by: 03/30/17 Progress towards goal: Met Goal #3: Pt to amb. w/o asst device, community distances and min. gait deviation. Goal to be met by: 03/30/17 (100%) Progress towards goal: Met Goal #4: Right knee AROM WFL's to perform all ADL's without difficulty. Goal to be met by: 03/30/17 Progress towards goal: Met Plan PLAN OF CARE EXPIRES ON:: 03/30/17 ORDER # VISITS AND/OR THROUGH DATE: 03/30/17 PLAN: Plan for Discharge (Discharge with HEP.)
--- NOTE | 2017-03-27 16:06 | RS.QUICKDC ---
Discharge from PT Date of Discharge: 03/27/17 Number of Visits: 24 Reason for Discharge: Patient reported good progress the last 3 weeks of therapy. She met all 7 treatment goals and stated she will continue HEP, including stationary bike, following discharge. Please refer to last Daily Note for specifics of treatment and goals. Discharge with HEP.
== END 2017-04-08 ==
PROVIDERS: ATTEND Orthopaedic Surgery
DX: M25.561 Pain in right knee (principal); T84.82XA Fibrosis due to internal orthopedic prosthetic devices, implants and grafts, initial encounter

== ENCOUNTER 2018-04-10 20:52 | Emergency (ER) ==
[2018-04-10 21:04] VITALS: BP 130/79; TEMP 98.6; BMI 37.1
[2018-04-10] MEDS ORDERED: MOTRIN PO STA (22:07)
[2018-04-10] MEDS ORDERED: ZITHROMAX PO STA (22:08)
--- NOTE | 2018-04-10 22:44 | ED.PDOC ---
General ED Provider: Dr. MI AREVALO Chief Complaint: Earache Stated Complaint: Patient is a 53 year old female who coms to the ER with c/o left ear pain. states she took some ear drops that Her PCP called in but had no relief Time Seen by Physician: 22:39 Mode of Arrival: Walk-In Information Source: Patient Primary Care Provider: ANA CARRANZA Nursing and Triage Documentation Reviewed and Agree: Yes Does patient meet sepsis criteria?: No System Inflammatory Response Syndrome: Not Applicable Sepsis Protocol: For patient's 13 years and over: Temp is 96.8 and below OR 101 and greater Pulse >90 BPM Resp >20/minute Acutely Altered Mental Status Are patient's symptoms suggestive of a new infection, such as: -Pneumonia -Skin, Soft Tissue -Endocarditis -UTI -Bone, Joint Infection -Implantable Device -Acute Abdominal Infection -Wound Infection -Meningitis -Blood Stream Catheter Infection -Unknown EENT Complaint Exam - Ear Complaint/Exam Onset/Duration: 4 weeks Symptoms Are: Still present Timing: Constant Initial Severity: Mild Current Severity: Moderate Character: Reports: Aching pain Aggravating: Reports: Tugging on ear Alleviating: Reports: None Associated Signs and Symptoms: Reports: Ear swelling (on the cannal ). Denies: Ear trauma, Discharge, Fever, Hearing loss, Bleeding, Sore throat, Headache, URI symptoms, Foreign body sensation, Rash, Pain to external ear, Pain to external face Ear Surgical History: None Vesicles to External Pinna: Yes (rasied pimple but has not formed a head) Vesicles to Tragus: No TMJ Tenderness: None Mastoid Tenderness: None Tragal Tenderness: None External Canal: Tenderness Material in Canal: Absent: Cerumen, Cerumen impaction, Discharge, Blood, Foreign body Differential Diagnoses: Otitis Externa Review of Systems - Review Of Systems Constitutional: Reports: No symptoms Eyes: Reports: No symptoms Ears, Nose, Mouth, Throat: Reports: Ear pain (left ear ) Respiratory: Reports: No symptoms Cardiac: Reports: No symptoms GI: Reports: No symptoms : Reports: No symptoms Musculoskeletal: Reports: No symptoms Skin: Reports: No symptoms Neurological: Reports: No symptoms Endocrine: Reports: No symptoms Hematologic/Lymphatic: Reports: No symptoms All Other Systems: Reviewed and Negative Past Medical History - Past Medical History Previously Healthy: Yes Endocrine: Reports: None Cardiovascular: Reports: Hypertension Respiratory: Reports: None Hematological: Reports: None Gastrointestinal: Reports: None Genitourinary: Reports: None Neuro/Psych: Reports: Anxiety, Depression Musculoskeletal: Reports: None Cancer: Reports: None Last Menstrual Period: n/a - Surgical History General Surgical History: Reports: Hysterectomy, Orthopedic (right knee replacment) - Family History Family History: Reports: Unknown - Social History Smoking Status: Never smoker Hx Substance Use: No Alcohol Screening: None Physical Exam - Physical Exam Appearance: Obese Ill-appearing: Mild Pain Distress: Moderate Eyes: ROSEANN, EOMI, Conjunctiva clear ENT: Nose normal Neck: Supple Respiratory: Airway patent, Breath sounds clear, Breath sounds equal, Respirations nonlabored Cardiovascular: RRR, Pulses normal, No rub, No murmur GI/: Soft, Nontender, No masses, Bowel sounds normal, No Organomegaly Musculoskeletal: Normal strength, ROM intact, No edema, No calf tenderness Skin: Warm, Dry Neurological: Alert, Oriented Psychiatric: Anxious Critical Care Note - Critical Care Note Total Time (mins): 0 Course - Course Orders, Labs, Meds: Orders Category Date Time Status Azithromycin [Zithromax] MEDS 04/10/18 22:08 Discontinued 500 mg PO ONCE STA Ibuprofen [Motrin] MEDS 04/10/18 22:07 Discontinued 800 mg PO ONCE STA Medications Discontinued Medications Generic Name Dose Route Start Last Admin Trade Name Esther PRN Reason Stop Dose Admin Azithromycin 500 mg 04/10/18 22:08 04/10/18 22:15 Zithromax PO 04/10/18 22:09 500 mg ONCE STA Administration Ibuprofen 800 mg 04/10/18 22:07 04/10/18 22:15 Motrin PO 04/10/18 22:08 800 mg ONCE STA Administration Vital Signs: Temp Pulse Resp BP Pulse Ox 04/10/18 21:00 98.6 F 74 20 130/79 95 Departure - Departure Time of Disposition: 22:44 Disposition: HOME SELF-CARE Discharge Problem: Otitis externa Qualifiers: Otitis externa type: other infective Chronicity: acute Laterality: left Qualified Code(s): H60.392 - Other infective otitis externa, left ear Instructions: Otitis Externa (ED) Condition: Good Pt referred to PMD for follow-up: Yes IPMP verified?: No Additional Instructions: Take Motrin as needed for pain Take antibiotics as prescribed. Follow up with ENT for further evaluation Prescriptions: Azithromycin [Zithromax] 250 mg PO DIRECTED #4 tablet Ibuprofen [Motrin] 600 mg PO Q6H PRN #30 tablet PRN Reason: Analgesia Allergies/Adverse Reactions: Allergies No Known Allergies Allergy (Unverified 04/10/18 21:03) Home Medications: Ambulatory Orders Azithromycin [Zithromax] 250 mg PO DIRECTED #4 tablet 04/10/18 Ibuprofen [Motrin] 600 mg PO Q6H PRN #30 tablet 04/10/18 Disposition Discussed With: Patient, Family
== END 2018-04-10 23:00 | disposition home or self-care (01) ==
LOC: ED 20:52
DX: H60.392 Other infective otitis externa, left ear (principal)
CPT/HCPCS: 99282